=== PATIENT | male | born 1990 | race Caucasian/White ===

== ENCOUNTER 2025-01-15 13:35 | Observation (INO) | payer MEDICARE, MEDICAID, SELFPAY ==
[2025-01-15 08:29] VITALS: BP 186/114
[2025-01-15 09:01] VITALS: BP 158/110
--- NOTE | 2025-01-15 09:16 | ED.GENMED ---
Addendum entered and electronically signed by Eliud Paez MD 01/15/25 15:33:
Slit-lamp exam. No flare in cell. Cornea clear. No dendrites or ulcers. No foreign body. Mild conjunctival injection. No pain with eye motion. No periorbital swelling of note.
Patient also asked me to check the back of his neck. Base of the neck has a crease with erythema. No fluctuance. Suspicious of a fungal infection.
Original Note:
History of Present Illness
<Lg Larkin PA-C - Last Filed: 01/15/25 11:52>
General
Chief Complaint: Breathing Problem
Time Seen by Provider: 01/15/25 08:57
History of Present Illness
History of Present Illness:
Patient is a 34-year-old male with a past medical history of hypertension (reports compliance with antihypertensive medication), prior history of tobacco use, diabetes, anxiety, depression, history of stage I Parkinson's disease (reports family
history), here today for evaluation of persistent chest pain and shortness of breath that has been occurring intermittently over the past 1 to 2 weeks. He also endorses lightheadedness, dizziness, and left eye redness. He has noted discharge and
pus expelling from the left eye as well associated with transient blurry vision. No trauma to the eye. He does not wear contact lenses. He does report this past Saturday he sustained a near syncopal episode after he became lightheaded and struck
his head and neck. He also reports biting his tongue. Patient was seen at [facility] in the emergency department on 01/08/2025. He underwent a full workup including blood work which included troponin, D-dimer, and BNP, CT head and
neck, and CT chest, abdomen, and pelvis. They also performed CT scans of the thoracic and lumbar spine. All of the above evaluation was grossly within normal limits. At 1 point the patient's oxygen levels desaturated to 40% while sleeping which
reportedly came back up to normal. Patient was placed on 2 L nasal cannula. There was concern for possible hypercarbia and ICU ultimately evaluated the patient who felt patient was suitable for discharge with CPAP and outpatient
follow-up/pulmonology evaluation. Patient was discharged but returned the hospital on 01/11/2025 as he was having persistent symptoms. An additional workup was performed including CT orbit, all of which was grossly normal and patient was
recommended to be admitted to the hospital for monitoring but ultimately declined and left. He represents today as he has been having persistent symptoms. He still endorses his left eye symptoms and has been taking the ofloxacin drops as directed.
He was previously prescribed Polytrim but this was not working. He still endorses chest pain and shortness of breath associated with lightheadedness. He has noted mild nasal congestion. He reports a fever last week but this has since resolved.
He has noted lower extremity pain and swelling bilaterally. No cough or sore throat. No other acute complaints.
Past History
<Lg Larkin PA-C - Last Filed: 01/15/25 11:52>
Past History
ED Past Medical History: Psychiatric
ED Past Surgical History: Other (Oral surgery)
Social History
Tobacco: Non-smoker
Alcohol: Occasional
Drug: None
Personal: Single
Living: alone
Employment: Disabled
Family History
Family History: Adopted
Review of Systems
<Lg Larkin PA-C - Last Filed: 01/15/25 11:52>
Review of Systems
All Other Systems: ROS reviewed and negative except as documented in HPI and ROS
Phy Exam
<Lg Larkin PA-C - Last Filed: 01/15/25 11:52>
Physical Exam
Physical Exam:
GENERAL: Alert , in no apparent distress
EYE: pupils equal and reactive, extraocular movements intact, no periorbital swelling/erythema, there is left eye conjunctival injection and purulent material expressing from the medial canthus
NECK: Supple, no rigidity
ENT: o/p clr, mmm.
CARDIAC: Regular rate and rhythm .
LUNGS: Clear breath sounds bilaterally, no acute respiratory distress, no wheezes/rales/rhonchi
ABDOMEN: Soft, without focal tenderness, no r/g, no cvat
NEUROLOGICAL: Alert and oriented, no focal neuro deficits, moving all extremities, normal sensation and motor, cranial nerves II through XII intact
SKIN: Warm and dry, skin intact.
MUSCULOSKELETAL: No edema, well perfused.
PSYCH: Normal and appropriate interaction.
Course
<Lg Larkin PA-C - Last Filed: 01/15/25 11:52>
Orders/Labs/Results
Orders:
Orders
01/15/25 08:23
ECG [Electrocardiogram (*1)] Urgent
Reason for Study: Shortness of Breath
EKG- Treatment ONCE
01/15/25 09:16
EKG- Treatment ONCE
01/15/25 09:20
Complete Blood Count/With Diff Urgent
Comprehensive Metabolic Panel Urgent
Creatine Phosphokinase Urgent
Comment: ADD ON
D-Dimer Urgent
NT-proBNP Urgent
Troponin I Urgent
01/15/25 09:28
CT Chest PE Study Urgent
Comment:
Reason For Exam: shortness of breath
01/15/25 09:30
Add On- LAB Urgent
Comments:: sst in lab
Tests Added?: CPK
Abnormal Lab Results
01/15/25
09:20
MCV 78.4 L fL
(80.0-94.0)
MCH 24.6 L pg
(27.0-31.0)
MCHC 31.4 L g/dL
(33.0-37.0)
RDW 15.9 H %
(11.5-14.5)
Absolute Neuts (auto) 7.2 H 10^3/uL
(1.4-6.5)
Carbon Dioxide 32 H mmol/L
(22-30)
Glucose 131 H mg/dl
(70-99)
01/15/25 09:20
01/15/25 09:20
Vital Signs
Initial and Last Documented VS:
Initial Vital Signs
Temp Pulse Resp BP Pulse Ox
98.2 F 102 18 186/114 93
01/15/25 08:29 01/15/25 08:29 01/15/25 08:29 01/15/25 08:29 01/15/25 08:29
Last Documented Vital Signs
Temp Pulse Resp BP Pulse Ox
98.5 F 77 25 148/94 95
01/15/25 08:29 01/15/25 10:00 01/15/25 10:00 01/15/25 10:27 01/15/25 10:27
<Eliud Paez MD - Last Filed: 01/15/25 09:44>
Orders/Labs/Results
Orders:
Orders
01/15/25 08:23
ECG [Electrocardiogram (*1)] Urgent
Reason for Study: Shortness of Breath
EKG- Treatment ONCE
01/15/25 09:16
EKG- Treatment ONCE
01/15/25 09:20
Complete Blood Count/With Diff Urgent
Comprehensive Metabolic Panel Urgent
Creatine Phosphokinase Urgent
Comment: ADD ON
D-Dimer Urgent
NT-proBNP Urgent
Troponin I Urgent
01/15/25 09:28
CT Chest PE Study Urgent
Comment:
Reason For Exam: shortness of breath
01/15/25 09:30
Add On- LAB Urgent
Comments:: sst in lab
Tests Added?: CPK
Abnormal Lab Results
01/15/25
09:20
MCV 78.4 L fL
(80.0-94.0)
MCH 24.6 L pg
(27.0-31.0)
MCHC 31.4 L g/dL
(33.0-37.0)
RDW 15.9 H %
(11.5-14.5)
Absolute Neuts (auto) 7.2 H 10^3/uL
(1.4-6.5)
Carbon Dioxide 32 H mmol/L
(22-30)
Glucose 131 H mg/dl
(70-99)
01/15/25 09:20
01/15/25 09:20
Vital Signs
Initial and Last Documented VS:
Initial Vital Signs
Temp Pulse Resp BP Pulse Ox
98.2 F 102 18 186/114 93
01/15/25 08:29 01/15/25 08:29 01/15/25 08:29 01/15/25 08:29 01/15/25 08:29
Last Documented Vital Signs
Temp Pulse Resp BP Pulse Ox
98.5 F 77 25 148/94 95
01/15/25 08:29 01/15/25 10:00 01/15/25 10:00 01/15/25 10:27 01/15/25 10:27
<Lg Larkin PA-C - Last Filed: 01/15/25 11:52>
MDM/Problems Addressed
Differential Diagnosis Includes:
Patient is a 34-year-old male with a past medical history of hypertension (reports compliance with antihypertensive medication), prior history of tobacco use, diabetes, anxiety, depression, history of stage I Parkinson's disease (reports family
history), here today for evaluation. Overall, patient appears well. He is hypertensive. He is mildly tachycardic. Vital signs otherwise within normal limits. I was able to review the patient medical record on his cheri and reviewed clinical notes
from the visits on 01/08 and 01/11. We will repeat the workup including CBC, CMP, troponin, and BNP. Will also obtain an EKG and CT pulmonary embolism study. Will place on clinical research monitor and closely monitor and follow.
01/15/2025 09:50: Received notification from nursing staff that patient requested to lie down. During this time oxygen levels were noted to drop as low as 60% with good pleth. This self resolved when the patient woke up. Will continue to monitor.
01/15/2025 11:47: Screening labs reveal mild hyperglycemia to 131. Normal troponin, BNP. CT chest reveals no evidence of PE or thoracic aortic dissection. Clear lungs. There is severe diffuse fatty infiltration of the liver. Patient made aware.
Given persistent chest pain and multiple visits to the emergency department recently we will admit to medicine for further testing and evaluation. Patient in agreement with plan. He does report additionally he has an advance directive which
states no intubation.
<Lg Larkin PA-C - Last Filed: 01/15/25 11:52>
*Pulse Oximetry
SaO2: 95
Oxygen Mode of Delivery: Room air
Patient hypoxic: yes (intermittent, during sleep)
*Critical Care Note
Total Time (30-74mins, 75-104mins- exclusive of procedures): Not Applicable
ED Attending Note
<Lg Larkin PA-C - Last Filed: 01/15/25 11:52>
-
Portions of this chart may have been created with voice recognition software.� Occasional wrong word or��sound alike� substitutions may have occurred due to the inherent limitations of voice recognition software.
<Eliud Paez MD - Last Filed: 01/15/25 09:44>
ED Attending Note
Patient seen and examined by attending physician: Yes
I performed the substantive portion of visit, reviewed & personally made and approve the management plan that is documented in note by myself or CHERI.: Yes
ED Attending Note:
34-year-old male complaining of ongoing intermittent chest discomfort and shortness of breath. Seen twice at [facility]. During that visit he had a CT of his head neck after a fall. Also a plain CT of the chest abdomen and pelvis.
These were unremarkable. Second visit he had his CT of his left orbit for conjunctival discharge. That was unremarkable. They initially were talking of admitting him because he became severely hypoxic but elected to discharge him. He returned
later for a second visit. He now presents with ongoing symptoms.
On exam patient is nontoxic in no distress. Warm and dry. Perfusing well. Lungs are distant but clear. Heart borderline tachycardic and regular no murmur. Elevated BMI soft abdomen. Chronic swelling to both legs appears more adipose tissue
than any pitting edema. He does have some tenderness to the calves bilaterally. Good distal pulses and color.
All his testing at [facility] was reviewed. D-dimers were negative. Cardiac testing was negative. He has mild conjunctival injection of the left eye this appears to be a conjunctivitis which does not course explain his shortness of breath or
intermittent chest pain. The CT of the chest was done plain. Although dimer's were negative the pretest likelihood for PE would be moderately high given his obesity. And with ongoing symptoms feel CT of the chest with IV contrast is warranted.
Either way with a third visit with ongoing chest pain and shortness of breath patient warrants inpatient evaluation
Discharge Plan
Departure
Patient Disposition: Admit
Date of Disposition: 01/15/25
Time of Disposition: 11:46
Admit to: Telemetry
Admit to doctor: Thomas Leigh
Presentation/result/management discussed w/ accepting MD/DO: Hospitalist
Patient with high blood pressure during this ER visit?: Yes
Condition: Serious
Discharge Problem:
Chest pain, Shortness of breath, Hypoxia, sleep related, Acute conjunctivitis, left eye
Referrals:
NONE,* [Family Provider, Internal Medicine]
Interventions
Interventions:
*Risk Screen - Suicide Last Done: 01/15/25 09:27
*General Assessment Last Done: 01/15/25 09:27
*Neglect/Abuse Screening Last Done: 01/15/25 09:27
*ED COVID-19 Vaccine History Last Done: 01/15/25 08:29
ED- Cardiac Assessment Last Done: 01/15/25 09:20
ED- Pulmonary Assessment Last Done: 01/15/25 09:20
Discharge Date and Time
Print Language: SLOVENIAN
[2025-01-15 09:27] LABS: Hematocrit 46.5 % (39.0-52.0); Hemoglobin 14.6 g/dL (13.0-18.0); Mean Corp Hgb Conc. 31.4 g/dL (33.0-37.0); Mean Corpuscular Volume 78.4 fL (80.0-94.0); Nucleated Red Blood Cells % 0 % (-); Platelet Count 233 10^3/uL (130-400); Red Cell Dist. Width 15.9 % (11.5-14.5)
[2025-01-15 09:56] LABS: ALT (SGPT) 29 U/L (0-50); AST (SGOT) 23 U/L (17-59); Albumin 3.9 g/dl (3.5-5.0); Alkaline Phosphatase 85 U/L (38-126); Blood Urea Nitrogen 10 mg/dl (9-20); Calcium 9.2 mg/dl (8.4-10.2); Carbon Dioxide 32 mmol/L (22-30); Chloride 103 mmol/L (98-107); Estimated Creatinine Clearance > 125 ml/min; Glucose 131 mg/dl (70-99); Potassium 4.1 mmol/L (3.5-5.1); Sodium 138 mmol/L (135-145); Total Protein 7.3 g/dl (6.3-8.2); eGFR > 60.00
--- NOTE | 2025-01-15 10:02 | EDRN ---
Pt had asked staff to lower his HOB to supine for comfort. Pt is obese. Pulseox went to 8 with strong pleth. I elevated HOB 4 degrees and pulseox climbed back to 90's. JAMESON Castanon notified.
[2025-01-15 10:06] LABS: D-Dimer 0.33 ug/mlFEU (0.00-0.50)
[2025-01-15 10:07] LABS: Troponin I < 0.012 ng/ml
[2025-01-15 10:27] VITALS: BP 148/94
--- NOTE | 2025-01-15 12:09 | HPS.HSE ---
Family Physician
-
Family Physician: * NONE
Chief Complaint
-
Left Eye Redness
History of Present Illness
Patient is a 34 y/o male past medical history of hypertension, hyperlipemia, diabetes mellitus and morbid obesity who presents with left eye redness as well as complaints of chest pain and shortness of breath. Patient reports his left eye has been
red for about 2-3 weeks. He notes he was initially given an eye drop that had a steroid which seem to help a little bit, but then was changed to ofloxacin drops which has not improved the symptoms. Today upon awaking patient reports the left eye
was swollen shut and had a lot of purulent drainage. He reports pain with movement of the eye and associated blurry vision. He also notes fever as high as 102F earlier this week.
In regard to his chest pain and shortness of breath this has been no going for several weeks. He reports significant dyspnea on exertion which seems to be worsening. He reports left sided chest pressure which is mostly constant but sometimes
worsened and described as a pulsating pain. He states the chest pain does not seem to get worse with activity. He reports dizziness/lightheadedness that is worse with movement particularly standing up. He complains of increased lower extremity
edema.
Medical History
Past Medical History
Past Medical History: Reports Other
Additional Past Medical History:
Diabetes Mellitus, Type II
Essential Hypertension
Hyperlipidemia
Anxiety
Depression
Mood Disorder
PTSD
Past Surgical History: Reports Other
Additional Past Surgical History:
Oral Surgery
Social History
Tobacco: Non-smoker
Alcohol: Occasional
Drug: None
Family History
Family History: Adopted
Allergies / Home Medications
Allergies reflects when Allergies were last updated in [employer].
Home Medications with original date entered in [employer]
Allergy/Medication List:
Allergies
Allergy/AdvReac Type Severity Reaction Status Date / Time
No Known Allergies Allergy Unverified 01/15/25 08:38
Home Medications
acetaminophen 500 mg tablet (Tylenol Extra Strength) 1,000 mg PO Q6HPRN PRN MILD PAIN 01/15/25
albuterol sulfate 90 mcg/actuation aerosol inhaler 2 puff inhalation R Q6HPRN PRN SOB 01/15/25
alprazolam 0.25 mg tablet (Xanax) 0.125 mg PO BIDPRN PRN ANIXETY 01/15/25
bismuth subsalicylate 262 mg chewable tablet (Pepto-Bismol) 2 tab PO QIDPRN PRN GERD 01/15/25
budesonide-formoterol HFA 80 mcg-4.5 mcg/actuation aerosol inhaler (Symbicort) 2 inh inhalation R BID 01/15/25
celecoxib 200 mg capsule (Celebrex) 200 mg PO BID 01/15/25
fluoxetine 20 mg capsule 20 mg PO DAILY@1300 01/15/25
gabapentin 600 mg tablet 600 mg PO TIDPRN PRN MILD PAIN 01/15/25
hydrochlorothiazide 25 mg tablet 25 mg PO DAILY 01/15/25
metformin 500 mg tablet,extended release 24 hr 500 mg PO DAILY 01/15/25
therapeutic multivitamin 1 tab PO DAILY 01/15/25
tirzepatide 2.5 mg/0.5 mL subcutaneous pen injector (Mounjaro) 2.5 mg SC FR 01/15/25
trazodone 50 mg tablet 50 mg PO HS 01/15/25
valsartan 160 mg tablet 160 mg PO DAILY 01/15/25
Review of Systems
-
A 12 point ROS was completed and negative except as noted: Yes
Constitutional: Reports Fever
Respiratory: Reports Cough (Slight non-productive) and Trouble Breathing
Cardiac: Reports Chest Pain
Abdomen/GI: Reports Vomiting
Endocrine: Reports Polyuria
Physical Exam
Vital Signs
Vital Signs
Temp Pulse Resp BP Pulse Ox
98.5 F 77 25 148/94 95
01/15/25 08:29 01/15/25 10:00 01/15/25 10:00 01/15/25 10:27 01/15/25 10:27
Physical Exam
General: Comfortable, Conversant and Morbidly Obese
HEENT: Anicteric, Moist mucous membranes and Other (EOMI though patient reports pain with lateral gaze to the left and blurry vision with gaze to the left; Left conjunctival injection with small amount of purulent material noted)
Respiratory: Clear and Non Labored Respirations
Cardiac: S1/S2 and Regular Rhythm
GI: Soft and Non Tender
Rectal: Deferred by Provider
Musculoskeletal: No Clubbing, No Cyanosis and Other (Slight non-pitting edema bilateral feet)
Skin: Warm and Dry
Neuro: Awake, Alert, Oriented and Other
Psych: Calm
Laboratory Results
-
01/15/25 09:20
01/15/25 09:20
Laboratory Results
Total Bilirubin 0.5 mg/dl (0.2-1.3) 01/15/25 09:20
AST 23 U/L (17-59) 01/15/25 09:20
ALT 29 U/L (0-50) 01/15/25 09:20
Alkaline Phosphatase 85 U/L (38-126) 01/15/25 09:20
Troponin I < 0.012 ng/ml 01/15/25 09:20
Data Reviewed
-
CT Scan: Report Reviewed by me
Lab Data: Labs Reviewed by me
Impression/Plan
-
Chest Pain / Shortness of Breath
-Check Echo
-Check second troponin later this afternoon but doubt cardiac in nature
-Consult Pulmonary
Left Eye Redness, likely conjunctivitis
-Patient had an orbit CT at [facility] last week which was negative
-Transition ofloxacin drop to erythromycin ointment
-ED did reach out ophthalmology - Still awaiting call back
Diabetes Mellitus, Type II
-Check HgbA1c
-Hold metformin
-Monitor sugars and continue coverage insulin
Essential Hypertension
-BP initially uncontrolled likely due to missed medication this morning
-Continue valsartan - Give usual dose now
Anxiety / Depression / Mood Disorder / PTSD
-Continue fluoxetine, and trazodone
Obstructive Sleep Apnea
Suspected Obesity Hypoventilation Syndrome
-Continue CPAP
-Monitor continuous pulse ox, particularly nocturnal pulse ox
Class III Obesity
-Affects all aspects of care
-Encourage weight loss
DVT Proph: SC Heparin
Code Status: Full Code
--- NOTE | 2025-01-15 13:05 | W.PN.UPDATE ---
Addendum entered and electronically signed by Jett Mendes MD 01/15/25 22:07:
01/15/25 TTE:
Technically difficult study with fair image quality Echo contrast used
LVEF 60-65% .
Wall motion analysis limited image quality
No significant valvular disease detected
Addendum entered and electronically signed by Jett Mendes MD 01/15/25 13:35:
Case dw Mds Rn:
Consulted for Clinical MARTHA +/_ [facility] but not forma formally established the Dxs
Original Note:
Update Note
Progress Note Update
This note serves as an addendum to the H&P by tool analyst CROW
Miguelina PINEDA
34M HX HX hypertension, diabetes, anxiety, depression, early Parkinson's disease seen at ER
- cp/sob and lightheadedness.
- left eye discharge/injection is being treated for conjunctivitis. Reports NEG Lt Eye orbit CT per ER CROW
- seen at [facility] 01/08 and 01/11 for similar symptoms and had full workup, all of which grossly NEG but at one point found to be hypoxic during sleep to 40%. Ultimately left after they recommended admission.
- workup is largely unremarkable but patient does desat to 60% while lying flat/sleeping.
- Not yet established MARTHA but mosttlikely he has clinical MARTHA/[facility]
- Given persistent cp and sob and multiple ED visits in the past week plan for admission for cards consultation and
Relevant VS:
PE
Gen: extremely obese
HEENT: Lt eye conjuctivitis
Neck: short and obese neck
Lungs: limied exam due to body habitat
Cor: distant HS
Abdomen: obese abdomen
DELPHI DEVELOPER: AAO3
MS:
Psych: nl mood and affect
Relevant data
Unremarkable CBC
DD 0.33
CO2 32
NEG first TPNI
pro BNP
CTC PE study
1. No evidence of pulmonary embolism or thoracic aortic dissection.
2. Clear lungs.
3. Severe diffuse fatty infiltration of the liver.
EKG
NORMAL SINUS RHYTHM
LOW VOLTAGE QRS
BORDERLINE ECG
WHEN COMPARED WITH ECG OF 01-JAN-2014 22:09,
NO SIGNIFICANT CHANGE WAS FOUND
Confirmed by DYLAN GARCIA MD ([id number]) on 01/15/2025 12:37:43 PM
NO PRIOR DH /Hospitalist admission:
ASSESSMENT & PLAN
HX multiple ED visits in the past
Extreme Obesity with Class III BMI 64
- affects all aspects of
Lt eye conjunctivitis with discharge/injection.
- associated with Lt eye blurry vision
- NEG Lt Eye retroorbital CT at [facility] per ER CROW
- agree with ABx ( Ofloxacin vs E mycin ) eye drops
- Assault Amphibious Vehicle Officer consult by ER CROW
Intermittent CP
- NEG CTA for PE
- NEG first TPNI
- Unremarkable proBNP
- Agree with ECHO but likely limited study due to body habbitat
Desat as low as 40 %
Most likely undiagnosed sleep disorder ( [facility]THA +/_ [facility])
- On [employer]LE[employer] SPECIALIST Symbicort INH
- has home CPAP HS
- OP Pul evaluation
Pre existing conditions:
Bn HTN : on HCTZ and Valsartan
T2DM; on [employer] SPECIALIST Metformin to hold for now in case contrast study for Lt Eye. add ISS low
Anxiety, depression: on Gabapentin, [employer]LE[employer]IST Xanax PRN, Trazodone, and Fluoxetine
Parkinson's ???
DVT Px: SQH q8
Full code
OBS TLM
--- NOTE | 2025-01-15 13:29 | CM ---
CM reviewed chart, patient seen bedside, initial assessment completed. Patient is a 34-year-old male with a past medical history of hypertension (reports compliance with antihypertensive medication), prior history of tobacco use, diabetes, anxiety,
depression, history of stage I Parkinson's disease (reports family history), here today for evaluation of persistent chest pain and shortness of breath that has been occurring intermittently over the past 1 to 2 weeks.
Patient reports he is currently homeless, is working with [facility] and is currently staying in the [facility] in [place], is on the waitlist for housing. Patient reports he has been on the low income list since 2017 for
[facility]. Patient denies VN/SNF, is current in the [facility] program at [facility], just started this week. Patient reports he is hoping to transition to the partial program and feels he could benefit from further therapy. Patient reports he has
worked with the [facility] through [facility] in the past. Patient does not have a PCP, is interested in a list- will provide local [facility] and [facility] info. Patient reports he utilizes [facility]. CM will continue to
follow for all discharge planning needs.
Plan; return to hotel when stable
[2025-01-15] MEDS: DIOVAN 160 MG PO (14:18)
--- NOTE | 2025-01-15 15:10 | CON.PUL ---
Consultation
Consultation Request
Date/Time Consultation Requested: 01/15/25
Date/Time Consultation Performed: 01/15/25
Performing Provider: Shaista
Reason for Consultation: SOB
Medical History
-
History of Present Illness:
Patient is a 34-year-old male with previous history of hypertension, hyperlipidemia, diabetes, morbid obesity, MARTHA not on CPAP with complaints of chest pain and shortness of breath. He is also here with left eye conjunctivitis. He notes that his
shortness of breath and chest pain has not been ongoing for several weeks. He does use a portable oxygen container for shortness of breath with exertion. He has been seen by sleep physicians at [facility] and diagnosed with obstructive sleep
apnea in 2013 he believes. But has since lost his CPAP device following multiple change of residences. He has ongoing excessive daytime sleepiness. He is willing to resume his CPAP if he is able to get a new device. He now lives in [place]
and would like to transition his care to [place].
He does have a history of asthma, had been maintained on Symbicort and albuterol in the past but felt his inhalers were very expensive. He was a former trivial smoker overall less than a year total (1 pack total).
Past Medical History
Past Medical History: Other (see list below)
Social History
Tobacco: Non-smoker
Alcohol: None
Drug: None
Family History
Family History: Reviewed & Not Pertinent
Allergies / Home Medications
Allergies
Allergy/AdvReac Type Severity Reaction Status Date / Time
No Known Allergies Allergy Unverified 01/15/25 08:38
Home Medications
�Medication �Instructions �Recorded �Confirmed �Last Taken �Type
acetaminophen 500 mg tablet 1,000 mg PO Q6HPRN PRN MILD PAIN 01/15/25 01/15/25 Unknown History
(Tylenol Extra Strength)
albuterol sulfate 90 mcg/actuation 2 puff inhalation R Q6HPRN PRN SOB 01/15/25 01/15/25 Unknown History
aerosol inhaler
alprazolam 0.25 mg tablet (Xanax) 0.125 mg PO BIDPRN PRN ANIXETY 01/15/25 01/15/25 Unknown History
bismuth subsalicylate 262 mg 2 tab PO QIDPRN PRN GERD 01/15/25 01/15/25 Unknown History
chewable tablet (Pepto-Bismol)
budesonide-formoterol HFA 80 2 inh inhalation R BID 01/15/25 01/15/25 01/14/25 History
mcg-4.5 mcg/actuation aerosol
inhaler (Symbicort)
celecoxib 200 mg capsule (Celebrex) 200 mg PO BID 01/15/25 01/15/25 01/14/25 History
fluoxetine 20 mg capsule 20 mg PO DAILY@1300 01/15/25 01/15/25 01/14/25 History
gabapentin 600 mg tablet 600 mg PO TIDPRN PRN MILD PAIN 01/15/25 01/15/25 Unknown History
hydrochlorothiazide 25 mg tablet 25 mg PO DAILY 01/15/25 01/15/25 01/14/25 History
metformin 500 mg tablet,extended 500 mg PO DAILY 01/15/25 01/15/25 01/14/25 History
release 24 hr
therapeutic multivitamin 1 tab PO DAILY 01/15/25 01/15/25 01/14/25 History
tirzepatide 2.5 mg/0.5 mL 2.5 mg SC FR 01/15/25 01/15/25 Unknown History
subcutaneous pen injector
(Mounjaro)
trazodone 50 mg tablet 50 mg PO HS 01/15/25 01/15/25 01/14/25 History
valsartan 160 mg tablet 160 mg PO DAILY 01/15/25 01/15/25 01/14/25 History
Review of Systems
-
History Source: Patient
All other systems: Negative unless noted
Vitals / Labs / Diagnostic Testing
Vital Signs
Temp Pulse Resp BP Pulse Ox
98.5 F 72 32 155/75 92
01/15/25 08:29 01/15/25 14:18 01/15/25 12:00 01/15/25 14:18 01/15/25 12:00
Lab Data
01/15/25 09:20
01/15/25 09:20
Diagnostic Testing:
Physical Exam
-
HEENT: Normocephalic, Anicteric, Moist Mucous Membranes and Other (L eye redness)
Cardiovascular: S1/S2 and Regular Rhythm
Respiratory: Clear (overall diminished) and Non-Labored Respirations
GI: Soft, Non Distended and Non Tender
Neurology: Awake, Alert, Oriented and No Motor Deficits
Skin: Warm, Dry and Good Color
General: Comfortable and Other (NAD)
Assessment
-
Patient is a 34-year-old male with previous history of hypertension, hyperlipidemia, diabetes, morbid obesity, MARTHA not on CPAP with complaints of chest pain and shortness of breath. He is also here with left eye conjunctivitis. He notes that his
shortness of breath and chest pain has not been ongoing for several weeks. He does use a portable oxygen container for shortness of breath with exertion. He has been seen by sleep physicians at [facility] and diagnosed with obstructive sleep
apnea in 2013 he believes. But has since lost his CPAP device following multiple change of residences. He has ongoing excessive daytime sleepiness. He is willing to resume his CPAP if he is able to get a new device. He now lives in [place]
and would like to transition his care to [place].
He does have a history of asthma, had been maintained on Symbicort and albuterol in the past but felt his inhalers were very expensive. He was a former trivial smoker overall less than a year total (1 pack total).
SOB/chest pain
Left eye conjunctivitis
Chronic hypoxic respiratory failure, use of POC as needed at home
Conditions present [employer]
MARTHA not on CPAP
Diabetes Mellitus, Type II
Essential Hypertension
Hyperlipidemia
Anxiety
Depression
Mood Disorder
PTSD
Morbid obesity
Oral Surgery
Plan
No oxygen was needed on admission, currently saturating >90% on RA
He has a POC to use at home
Home O2 evaluation if needed
Prior history of lung disease is noted including asthma
He has been on symbicort in past-has difficulty affording his medications
We can switch his inhaler use to Advair generic to see if this is cheaper, we have discussed alternatives for inhalers as an outpatient if insurance does not cover
No prior PFTs available for review, we will try to attempt to locate records from [facility] as an outpatient
Patient has a history of MARTHA, no longer using CPAP
Will need set up as an outpatient again, can resume CPAP at 5 for the time being while inpatient
He is agreeable to outpatient follow-up
CXR/CT obtained indicating no acute process
He is ruled out for PE
He has history of hypertension but no other cardiomyopathy
proBNP on admission negative
No prior echo for review
Cardiac workup while in observation
Weight loss measures recommended
Obesity likely contributing to respiratory symptoms
We can discuss weight loss measures as an outpatient as well including initiation of Zepbound
Will need outpatient pulmonary evaluation in our office for PFTs and 6MWT
Reviewed with patient, will arrange outpatient follow-up
We will follow
Diagnostic Data
Chest X-Ray: 2013-No acute process.
CT Scan: CHEST 01/15/25- 1. No evidence of pulmonary embolism or thoracic aortic dissection.
2. Clear lungs.
3. Severe diffuse fatty infiltration of the liver.
Echo:
PFT's:
Reports and relevant images were personally reviewed.
Total time spent on this consultation __55__ minutes which includes review of history, physical exam, medications, laboratory data, personal review of imaging, extensive review of outpatient records, discussion with care team and respiratory therapy.
[2025-01-15 15:45] LABS: Troponin I < 0.012 ng/ml
[2025-01-15 19:34] VITALS: BP 157/106; BMI 63.4
[2025-01-15] MEDS: SYMBICORT 80/4.5 MCG INHALER 2 PUFF INH (20:07)
[2025-01-15] MEDS: ADVAIR HFA 230/21 MCG INHALER 2 PUFF INH (20:08)
[2025-01-15 20:59] LABS: Glucose - Point of Care 89 mg/dl (70-99)
--- NOTE | 2025-01-15 22:24 | PTCARENOTE ---
received pt in my care at 1930. oriented to room, call rodriguez and POC. pt upset he is not on REG diet, states he will sign out AMA if not on reg diet. Reviewed diet with pt. pt refusing erythromycin oint. for lt eye, pt requests only drops.
States it causes pain and makes his eyelid flip inside out. Inst pt all medications will cause discomfort in the eye bc he has infection. Pt still refuses. HAM SAWYER notified, hospital does not carry drops per HAM SAWYER. Pt informed and wants to sign out AMA d/t
no drops for the eye. HAM SAWYER aware
--- NOTE | 2025-01-15 22:55 | RESPNOTE ---
Saw pt around 2234. Pt refused CPAP due to the pt wanting to sign out AMA. Pt was educated if they should change their mind to let their RN know and we will come back and put them on the CPAP. RN is aware of situation.
--- NOTE | 2025-01-16 00:03 | PTCARENOTE ---
pt signed out AMA. ELI Rosenthal at bedside with pt and reviewing AMA paperwork. pt verb understanding, left with all belongings. pt ambulated out of hospital
--- NOTE | 2025-01-16 00:50 | W.PN.UPDATE ---
Update Note
Progress Note Update
Patient requesting to leave. Pt AAOX3, pt education given regarding leaving AMA and risks associated. AMA form signed by me (provider) and patient.
== END 2025-01-16 04:10 | disposition left against medical advice (07) ==
LOC: 2 NORTH 13:35
PROVIDERS: Physician Assistant; Physician Assistant Medical; ADMITTING PHYSICIAN Internal Medicine; CONSULT PHYSICIAN Internal Medicine; EMERGENCY PHYSICIAN Emergency Medicine
DX: H10.32 Unspecified acute conjunctivitis, left eye (principal); R07.89 Other chest pain; R50.9 Fever, unspecified; J96.11 Chronic respiratory failure with hypoxia; E78.5 Hyperlipidemia, unspecified; I10 Essential (primary) hypertension; E11.9 Type 2 diabetes mellitus without complications; E66.813 Obesity, class 3; Z68.44 Body mass index [BMI] 60.0-69.9, adult; R42 Dizziness and giddiness; R60.0 Localized edema; F41.9 Anxiety disorder, unspecified; F32.A Depression, unspecified; F43.10 Post-traumatic stress disorder, unspecified; G47.33 Obstructive sleep apnea (adult) (pediatric); G20.A1 Parkinson's disease without dyskinesia, without mention of fluctuations; J45.909 Unspecified asthma, uncomplicated; Z79.84 Long term (current) use of oral hypoglycemic drugs; Z53.29 Procedure and treatment not carried out because of patient's decision for other reasons
CPT/HCPCS: 71275; 80053; 82550; 82962; 83880; 84484; 85025; 85379; 93005; 93306; 94640; 99285; G0378; Q9950; Q9967

== ENCOUNTER 2025-03-02 15:17 | Emergency (ER) | payer MEDICARE, MEDICAID, SELFPAY ==
[2025-03-02 15:26] VITALS: BP 172/109
[2025-03-02 16:00] LABS: Hematocrit 44.9 % (39.0-52.0); Hemoglobin 13.8 g/dL (13.0-18.0); Mean Corp Hgb Conc. 30.7 g/dL (33.0-37.0); Mean Corpuscular Volume 78.5 fL (80.0-94.0); Nucleated Red Blood Cells % 0 % (-); Platelet Count 253 10^3/uL (130-400); Red Cell Dist. Width 16.0 % (11.5-14.5)
[2025-03-02 16:11] LABS: ALT (SGPT) 34 U/L (0-50); AST (SGOT) 29 U/L (17-59); Albumin 4.3 g/dl (3.5-5.0); Alkaline Phosphatase 81 U/L (38-126); Blood Urea Nitrogen 15 mg/dl (9-20); Calcium 9.2 mg/dl (8.4-10.2); Carbon Dioxide 33 mmol/L (22-30); Chloride 101 mmol/L (98-107); Glucose 100 mg/dl (70-99); Potassium 4.2 mmol/L (3.5-5.1); Sodium 139 mmol/L (135-145); Total Protein 7.7 g/dl (6.3-8.2); eGFR > 60.00
[2025-03-02 16:29] LABS: Troponin I < 0.012 ng/ml
[2025-03-02 17:54] VITALS: BP 170/122
[2025-03-02 18:00] VITALS: BP 171/126; BMI 63.3
[2025-03-02 18:54] LABS: Troponin I < 0.012 ng/ml
[2025-03-02 19:00] VITALS: BP 176/126
[2025-03-02 19:18] LABS: D-Dimer 0.39 ug/mlFEU (0.00-0.50)
[2025-03-02 21:41] VITALS: BP 147/95
--- NOTE | 2025-03-02 21:57 | ED.GENMED ---
History of Present Illness
General
Chief Complaint: Breathing Problem
Source: patient
Exam Limitations: none
Time Seen by Provider: 03/02/25 17:59
Nursing documentation reviewed up to this point in time: agreed with
History of Present Illness
History of Present Illness:
Patient to ED with report of HERNANDEZ. He has had this symptoms before but feels it has been worse for the past few days. Denies fever/chills. Brought self to ED for eval.
Past History
Past History
ED Past Medical History: COPD, NIDDM and Psychiatric (anxiety)
ED Past Surgical History: Other (Oral surgery)
Social History
Tobacco: Non-smoker
Alcohol: Occasional
Drug: None
Personal: Single
Living: alone
Employment: Disabled
Family History
Family History: Adopted
Review of Systems
Review of Systems
Allergies reviewed?: Yes
All Other Systems: ROS reviewed and negative except as documented in HPI and ROS
Constitutional: Reports no symptoms
EENT: Reports no symptoms
Respiratory: Reports trouble breathing
Cardiac: Reports no symptoms
ABD/GI: Reports no symptoms
: Reports no symptoms
Musculoskeletal: Reports no symptoms
Skin: Reports no symptoms
Neurological: Reports no symptoms
Psychiatric: Reports no symptoms
Phy Exam
General Physical Exam
General Presentation: well appearing and no apparent distress
General age: appears stated age
General Skin: warm and dry
General Habitus: obese
General Mental: alert
General Hydration: appears well hydrated
Cardiovascular Exam
Cardiovascular Exam: regular rate/rhythm and no edema (+1 edema BLE)
Pulmonary Exam
Pulmonary Exam: lungs clear, no respiratory distress (Pulse ox 98% 2L NC) and chest non tender
Oxygen Status: oxygen 2 liters via NC
Musculoskeletal Exam
Musculoskeletal Exam: full ROM and neuro vasc intact
Skin Exam
Skin Exam: normal color, warm/dry and no rash
Psychiatric Exam
Psychiatric Exam: normal mood/affect
Course
Orders/Labs/Results
Orders:
Orders
03/02/25 15:17
Electrocardiogram (*1) Urgent
Reason for Study: Shortness of Breath
EKG- Treatment ONCE
03/02/25 15:50
Complete Blood Count/With Diff Urgent
Comprehensive Metabolic Panel Urgent
NT-proBNP Urgent
Troponin I Urgent
03/02/25 18:24
D-Dimer Urgent
Troponin I Urgent
03/02/25 19:39
CR Chest - 2 Views Urgent
Comment:
Reason For Exam: SOB
Abnormal Lab Results
03/02/25
15:50
WBC 12.7 H 10^3/uL
(4.8-10.8)
MCV 78.5 L fL
(80.0-94.0)
MCH 24.1 L pg
(27.0-31.0)
MCHC 30.7 L g/dL
(33.0-37.0)
RDW 16.0 H %
(11.5-14.5)
Abs Immat Gran (auto) 0.1 H 10^3/uL
(0-0.05)
Absolute Neuts (auto) 8.8 H 10^3/uL
(1.4-6.5)
Absolute Monos (auto) 0.9 H 10^3/uL
(0.1-0.6)
Carbon Dioxide 33 H mmol/L
(22-30)
Glucose 100 H mg/dl
(70-99)
03/02/25 15:50
03/02/25 15:50
Vital Signs
Initial and Last Documented VS:
Initial Vital Signs
Temp Pulse Resp BP Pulse Ox
99.0 F 103 20 172/109 94
03/02/25 15:26 03/02/25 15:26 03/02/25 15:26 03/02/25 15:26 03/02/25 15:26
Last Documented Vital Signs
Temp Pulse Resp BP Pulse Ox
99.0 F 104 17 176/126 91
03/02/25 15:26 03/02/25 21:07 03/02/25 21:07 03/02/25 19:00 03/02/25 20:45
*Pulse Oximetry
SaO2: 91
Oxygen Mode of Delivery: Room air
Patient hypoxic: no
*Critical Care Note
Total Time (30-74mins, 75-104mins- exclusive of procedures): Not Applicable
Update Note
Update Note:
Patient to ED with complaint of HERNANDEZ. He has a history of this, wears O2 2L NC intermittently at home. MOrbidly obese (230KG, BMI 63.4) LCTA, CXR NAD, labs stable. Ddimer, troponin both neg. EKG nSR. Discussed results with him. NO new findings
tonight. Will discharge home, close follow up with PCP. Given instructions on s/s to return to ED and he is agreeable to plan. BP readings, reviewed. Diastolic reading >110. Cuff changed by me. BP now 145/95
ED Attending Note
-
Portions of this chart may have been created with voice recognition software.� Occasional wrong word or��sound alike� substitutions may have occurred due to the inherent limitations of voice recognition software.
Discharge Plan
Departure
Patient Disposition: Home (Routine Discharge)
Date of Disposition: 03/02/25
Time of Disposition: 21:46
Patient with high blood pressure during this ER visit?: No
Condition: Good
Covid-19: Not Applicable
Discharge Problem:
Dyspnea
Instructions: Shortness of breath in adults - ED (DC)
Prescriptions:
No Action
trazodone 50 mg tablet
50 mg PO HS
celecoxib [Celebrex] 200 mg Capsule
200 mg PO BID
gabapentin 600 mg Tablet
600 mg PO TIDPRN PRN (Reason: MILD PAIN)
Theragen Tablet
1 tab PO DAILY
acetaminophen [Tylenol Extra Strength] 500 mg Tablet
1,000 mg PO Q6HPRN PRN (Reason: MILD PAIN)
alprazolam [Xanax] 0.25 mg Tablet
0.125 mg PO BIDPRN PRN (Reason: ANIXETY)
bismuth subsalicylate [Pepto-Bismol] 262 mg Tablet,Chewable
2 tab PO QIDPRN PRN (Reason: GERD)
hydrochlorothiazide 25 mg Tablet
25 mg PO DAILY
albuterol sulfate [ProAir HFA] 90 mcg/actuation Hfa Aerosol Inhaler
2 puff INHALATION R Q6HPRN PRN (Reason: SOB)
fluoxetine 20 mg Capsule
20 mg PO DAILY@1300
metformin 500 mg tablet extended release 24 hr
500 mg PO DAILY
valsartan 160 mg Tablet
160 mg PO DAILY
budesonide-formoterol [Symbicort] 80-4.5 mcg/actuation Hfa Aerosol Inhaler
2 inh INHALATION R BID
Mounjaro 2.5 mg/0.5 mL Pen Injector
2.5 mg SC FR
Rx Instructions:
for 4 weeks
Referrals:
NONE,* [Family Provider, Internal Medicine]
Activity Restrictions/Additional Instructions:
Follow up with your family doctor.
Interventions
Interventions:
*Risk Screen - Suicide Last Done: 03/02/25 15:31
*General Assessment Last Done: 03/02/25 18:11
*Neglect/Abuse Screening Last Done: 03/02/25 15:31
*ED- Fall Risk Assessment Last Done: 03/02/25 18:11
*ED COVID-19 Vaccine History Last Done: 03/02/25 18:11
ED- Cardiac Assessment Last Done: 03/02/25 18:30
ED- Pulmonary Assessment Last Done: 03/02/25 18:30
Discharge Date and Time
Print Language: CYPRIOT
[2025-03-02 22:00] VITALS: BP 156/89
== END 2025-03-02 22:26 | disposition home or self-care (01) ==
LOC: EMR 15:17
PROVIDERS: Nurse Practitioner; EMERGENCY PHYSICIAN Emergency Medicine
DX: R06.00 Dyspnea, unspecified (principal); J44.9 Chronic obstructive pulmonary disease, unspecified; E11.9 Type 2 diabetes mellitus without complications; E66.01 Morbid (severe) obesity due to excess calories; Z68.44 Body mass index [BMI] 60.0-69.9, adult; Z99.81 Dependence on supplemental oxygen
CPT/HCPCS: 99285; 71046; 80053; 83880; 84484; 85025; 85379; 93005

== ENCOUNTER 2025-04-08 09:59 | Observation (INO) | payer OTHER, SELFPAY ==
[2025-04-08] VITALS (16 sets, daily range): BP systolic 142–179; BP diastolic 70–127; BMI 64.7
--- NOTE | 2025-04-08 04:14 | ED.GENMED ---
History of Present Illness
<Kemal Medrano Jr., PA-C - Last Filed: 04/09/25 03:08>
General
Chief Complaint: Breathing Problem
Source: patient
Exam Limitations: none
Time Seen by Provider: 04/08/25 03:46
Nursing documentation reviewed up to this point in time: agreed with
History of Present Illness
History of Present Illness:
34-year-old male past medical history of CHF hypertension asthma, BMI of 64, presenting to the emergency department today with concerns of shortness of breath and upper respiratory symptoms over the past 24 hours or so. Does have postnasal drip has
had a cough believes he has been wheezing. Has had some nausea no vomiting or diarrhea.
Past History
<Kemal Medrano Jr., PA-C - Last Filed: 04/09/25 03:08>
Past History
ED Past Medical History: COPD, NIDDM and Psychiatric (anxiety)
ED Past Surgical History: Other (Oral surgery)
Social History
Tobacco: Non-smoker
Alcohol: Occasional
Drug: None
Personal: Single
Living: alone
Employment: Disabled
Family History
Family History: Adopted
Review of Systems
<Kemal Medrano Jr., PA-C - Last Filed: 04/09/25 03:08>
Review of Systems
Allergies reviewed?: Yes
All Other Systems: ROS reviewed and negative except as documented in HPI and ROS
Phy Exam
<YOVANI Mac Jr. Last Filed: 04/09/25 03:08>
Physical Exam
Physical Exam:
GENERAL: Alert , in no apparent distress
EYE: pupils equal and reactive
NECK: Supple, no significant adenopathy.
ENT: Postnasal drip mild irritation to the posterior pharynx without significant exudate grossly patent airway, o/p clr, mmm.
CARDIAC: Regular rate and rhythm .
LUNGS: Expiratory wheeze diffusely
ABDOMEN: Soft, without focal tenderness, no r/g, no cvat
NEUROLOGICAL: Alert and oriented, no focal neuro deficits
SKIN: Warm and dry, skin intact.
MUSCULOSKELETAL: No edema, well perfused.
PSYCH: Normal and appropriate interaction.
Course
<Kemal Medrano Jr., PA-C - Last Filed: 04/09/25 03:08>
Orders/Labs/Results
Orders:
Orders
04/08/25 02:07
EKG [Electrocardiogram (*1)] Urgent
Reason for Study: Shortness of Breath
EKG- Treatment ONCE
04/08/25 04:14
Bedside Glucose- Treatment ONCE
Dexamethasone [Decadron] 10 mg PO NOW STA
Ipratropium/Albuterol Sulfate [Duoneb] 3 ml INH R NOW ONE
Chest [CR Chest - 2 Views ] Urgent
Comment:
Reason For Exam: cough sob
04/08/25 06:09
CBC/With Diff [Complete Blood Count/With Diff] Urgent
CMP [Comprehensive Metabolic Panel] Urgent
COVID-19 Antigen Urgent
Source: Nasal Swab
D-Dimer Urgent
Pro-BNP [NT-proBNP] Urgent
Troponin I Urgent
Influenza A+B Rapid Molecular Urgent
LESLEY Source: Nasal Swab
Specimen Description:
04/08/25 07:47
Furosemide [Lasix] 40 mg PO NOW STA
Valsartan [Diovan] 320 mg PO NOW STA
04/08/25 08:39
Admit/Transfer Patient As Directed
Co-Sign Provider:
Level of Care: Observation services
Assign to:: Medical/Surgical
Physician / Group: Juan Carlos Arthur
Diagnosis: Acute asthma exacerbation
Reason for Hospitalization: Acute asthma exacerbation
Expected length of stay greater than two midnights?: Yes
ELOS- Estimated Length of Stay in days: 2
I certify the patient meets the requirements for IP care: Yes
04/08/25 08:44
Code Status As Directed
Resuscitation Status: Full Code
04/08/25 08:51
Ondansetron Injectable [Zofran] 4 mg IV Q6HPRN PRN
04/08/25 Lunch
2200 calorie (18 carb) Diabetic
At Your Request: Full Participation
04/08/25 11:08
Albuterol [ProAIR HFA INHALER] 2 puff INH R Q6HPRN PRN SOB
04/08/25 11:10
CT Chest PE Study Urgent
Comment:
Reason For Exam: elevated D-dimer
04/08/25 11:20
Acetaminophen [Tylenol] 1,000 mg PO Q6HPRN PRN MILD PAIN
Dextrose 50%-Water [Dextrose 50% Syringe] 12.5 grams IV [id number] PRN
Glucagon [GlucaGen] 1 mg IM PRN PRN
Ondansetron Injectable [Zofran] 4 mg IV Q8HPRN PRN
04/08/25 11:20
Bedside Glucose Monitoring As Directed
Frequency: AC&HS
Additional Instructions:: Change to q6h if pt on TPN, tube feeding or not eating
Ot Eval And Treat Routine
Pt Eval And Treat Routine
Activity Level: Ambulate
DX Deep Vein Thrombosis Video Routine
04/08/25 11:30
Insulin Aspart Corrective Mod [Novolog Flexpen-Moderate Resistance] See Protocol SC AC
04/08/25 12:00
Ipratropium/Albuterol Sulfate [Duoneb] 3 ml INH R QID
04/08/25 13:00
Fluoxetine HCl [Prozac] 20 mg PO DAILY@1300
04/08/25 13:07
Alprazolam [Xanax] 0.125 mg PO BIDPRN PRN ANIXETY
04/08/25 13:08
Gabapentin [Neurontin] 600 mg PO TIDPRN PRN
04/08/25 18:00
Atorvastatin [Lipitor] 40 mg PO QPM
Enoxaparin Sodium [Lovenox] 40 mg SC QPM
Lurasidone HCl [Latuda] 20 mg PO QPM
04/08/25 20:00
Furosemide [Lasix] 40 mg PO BID
04/08/25 21:57
Arterial Blood Gas Urgent
%Oxygen/Room Air: room air
04/09/25 06:00
Complete Blood Count/With Diff IN AM
Comprehensive Metabolic Panel IN AM
04/09/25 08:00
NIFEdipine EXTENDED RELEASE [Procardia Xl (Extended Release)] 60 mg PO DAILY
Pantoprazole [Protonix] 40 mg PO DAILY
Valsartan [Diovan] 320 mg PO DAILY
Abnormal Lab Results
04/08/25 04/08/25
05:45 06:09
WBC 11.1 H 10^3/uL
(4.8-10.8)
MCV 76.8 L fL
(80.0-94.0)
MCH 24.5 L pg
(27.0-31.0)
MCHC 31.9 L g/dL
(33.0-37.0)
RDW 15.9 H %
(11.5-14.5)
Absolute Neuts (auto) 8.0 H 10^3/uL
(1.4-6.5)
Lymphocytes % 19.9 L %
(20.5-51.1)
D-Dimer 0.52 H ug/mlFEU
(0.00-0.50)
Glucose 115 H mg/dl
(70-99)
POC Glucose 110 H mg/dl
(70-99)
04/08/25 06:09
04/08/25 06:09
Vital Signs
Initial and Last Documented VS:
Initial Vital Signs
Temp Pulse Resp BP Pulse Ox
97.9 F 102 20 179/119 97
04/08/25 02:17 04/08/25 02:17 04/08/25 02:17 04/08/25 02:17 04/08/25 02:17
Last Documented Vital Signs
Temp Pulse Resp BP Pulse Ox
97.8 F 83 18 138/64 94
04/08/25 22:00 04/09/25 01:10 04/08/25 22:00 04/09/25 01:08 04/09/25 01:13
<July Mcneil, DO - Last Filed: 04/08/25 06:23>
Orders/Labs/Results
Orders:
Orders
04/08/25 02:07
EKG [Electrocardiogram (*1)] Urgent
Reason for Study: Shortness of Breath
EKG- Treatment ONCE
04/08/25 04:14
Bedside Glucose- Treatment ONCE
Dexamethasone [Decadron] 10 mg PO NOW STA
Ipratropium/Albuterol Sulfate [Duoneb] 3 ml INH R NOW ONE
Chest [CR Chest - 2 Views ] Urgent
Comment:
Reason For Exam: cough sob
04/08/25 06:09
CBC/With Diff [Complete Blood Count/With Diff] Urgent
CMP [Comprehensive Metabolic Panel] Urgent
COVID-19 Antigen Urgent
Source: Nasal Swab
D-Dimer Urgent
Pro-BNP [NT-proBNP] Urgent
Troponin I Urgent
Influenza A+B Rapid Molecular Urgent
LESLEY Source: Nasal Swab
Specimen Description:
04/08/25 07:47
Furosemide [Lasix] 40 mg PO NOW STA
Valsartan [Diovan] 320 mg PO NOW STA
04/08/25 08:39
Admit/Transfer Patient As Directed
Co-Sign Provider:
Level of Care: Observation services
Assign to:: Medical/Surgical
Physician / Group: Juan Carlos Arthur
Diagnosis: Acute asthma exacerbation
Reason for Hospitalization: Acute asthma exacerbation
Expected length of stay greater than two midnights?: Yes
ELOS- Estimated Length of Stay in days: 2
I certify the patient meets the requirements for IP care: Yes
04/08/25 08:44
Code Status As Directed
Resuscitation Status: Full Code
04/08/25 08:51
Ondansetron Injectable [Zofran] 4 mg IV Q6HPRN PRN
04/08/25 Lunch
2200 calorie (18 carb) Diabetic
At Your Request: Full Participation
04/08/25 11:08
Albuterol [ProAIR HFA INHALER] 2 puff INH R Q6HPRN PRN SOB
04/08/25 11:10
CT Chest PE Study Urgent
Comment:
Reason For Exam: elevated D-dimer
04/08/25 11:20
Acetaminophen [Tylenol] 1,000 mg PO Q6HPRN PRN MILD PAIN
Dextrose 50%-Water [Dextrose 50% Syringe] 12.5 grams IV [id number] PRN
Glucagon [GlucaGen] 1 mg IM PRN PRN
Ondansetron Injectable [Zofran] 4 mg IV Q8HPRN PRN
04/08/25 11:20
Bedside Glucose Monitoring As Directed
Frequency: AC&HS
Additional Instructions:: Change to q6h if pt on TPN, tube feeding or not eating
Ot Eval And Treat Routine
Pt Eval And Treat Routine
Activity Level: Ambulate
DX Deep Vein Thrombosis Video Routine
04/08/25 11:30
Insulin Aspart Corrective Mod [Novolog Flexpen-Moderate Resistance] See Protocol SC AC
04/08/25 12:00
Ipratropium/Albuterol Sulfate [Duoneb] 3 ml INH R QID
04/08/25 13:00
Fluoxetine HCl [Prozac] 20 mg PO DAILY@1300
04/08/25 13:07
Alprazolam [Xanax] 0.125 mg PO BIDPRN PRN ANIXETY
04/08/25 13:08
Gabapentin [Neurontin] 600 mg PO TIDPRN PRN
04/08/25 18:00
Atorvastatin [Lipitor] 40 mg PO QPM
Enoxaparin Sodium [Lovenox] 40 mg SC QPM
Lurasidone HCl [Latuda] 20 mg PO QPM
04/08/25 20:00
Furosemide [Lasix] 40 mg PO BID
04/08/25 21:57
Arterial Blood Gas Urgent
%Oxygen/Room Air: room air
04/09/25 06:00
Complete Blood Count/With Diff IN AM
Comprehensive Metabolic Panel IN AM
04/09/25 08:00
NIFEdipine EXTENDED RELEASE [Procardia Xl (Extended Release)] 60 mg PO DAILY
Pantoprazole [Protonix] 40 mg PO DAILY
Valsartan [Diovan] 320 mg PO DAILY
Abnormal Lab Results
04/08/25 04/08/25
05:45 06:09
WBC 11.1 H 10^3/uL
(4.8-10.8)
MCV 76.8 L fL
(80.0-94.0)
MCH 24.5 L pg
(27.0-31.0)
MCHC 31.9 L g/dL
(33.0-37.0)
RDW 15.9 H %
(11.5-14.5)
Absolute Neuts (auto) 8.0 H 10^3/uL
(1.4-6.5)
Lymphocytes % 19.9 L %
(20.5-51.1)
D-Dimer 0.52 H ug/mlFEU
(0.00-0.50)
Glucose 115 H mg/dl
(70-99)
POC Glucose 110 H mg/dl
(70-99)
04/08/25 06:09
04/08/25 06:09
Vital Signs
Initial and Last Documented VS:
Initial Vital Signs
Temp Pulse Resp BP Pulse Ox
97.9 F 102 20 179/119 97
04/08/25 02:17 04/08/25 02:17 04/08/25 02:17 04/08/25 02:17 04/08/25 02:17
Last Documented Vital Signs
Temp Pulse Resp BP Pulse Ox
97.8 F 83 18 138/64 94
04/08/25 22:00 04/09/25 01:10 04/08/25 22:00 04/09/25 01:08 04/09/25 01:13
<Dharmesh St PA-C - Last Filed: 04/08/25 07:52>
Orders/Labs/Results
Orders:
Orders
04/08/25 02:07
EKG [Electrocardiogram (*1)] Urgent
Reason for Study: Shortness of Breath
EKG- Treatment ONCE
04/08/25 04:14
Bedside Glucose- Treatment ONCE
Dexamethasone [Decadron] 10 mg PO NOW STA
Ipratropium/Albuterol Sulfate [Duoneb] 3 ml INH R NOW ONE
Chest [CR Chest - 2 Views ] Urgent
Comment:
Reason For Exam: cough sob
04/08/25 06:09
CBC/With Diff [Complete Blood Count/With Diff] Urgent
CMP [Comprehensive Metabolic Panel] Urgent
COVID-19 Antigen Urgent
Source: Nasal Swab
D-Dimer Urgent
Pro-BNP [NT-proBNP] Urgent
Troponin I Urgent
Influenza A+B Rapid Molecular Urgent
LESLEY Source: Nasal Swab
Specimen Description:
04/08/25 07:47
Furosemide [Lasix] 40 mg PO NOW STA
Valsartan [Diovan] 320 mg PO NOW STA
04/08/25 08:39
Admit/Transfer Patient As Directed
Co-Sign Provider:
Level of Care: Observation services
Assign to:: Medical/Surgical
Physician / Group: Juan Carlos Arthur
Diagnosis: Acute asthma exacerbation
Reason for Hospitalization: Acute asthma exacerbation
Expected length of stay greater than two midnights?: Yes
ELOS- Estimated Length of Stay in days: 2
I certify the patient meets the requirements for IP care: Yes
04/08/25 08:44
Code Status As Directed
Resuscitation Status: Full Code
04/08/25 08:51
Ondansetron Injectable [Zofran] 4 mg IV Q6HPRN PRN
04/08/25 Lunch
2200 calorie (18 carb) Diabetic
At Your Request: Full Participation
04/08/25 11:08
Albuterol [ProAIR HFA INHALER] 2 puff INH R Q6HPRN PRN SOB
04/08/25 11:10
CT Chest PE Study Urgent
Comment:
Reason For Exam: elevated D-dimer
04/08/25 11:20
Acetaminophen [Tylenol] 1,000 mg PO Q6HPRN PRN MILD PAIN
Dextrose 50%-Water [Dextrose 50% Syringe] 12.5 grams IV [id number] PRN
Glucagon [GlucaGen] 1 mg IM PRN PRN
Ondansetron Injectable [Zofran] 4 mg IV Q8HPRN PRN
04/08/25 11:20
Bedside Glucose Monitoring As Directed
Frequency: AC&HS
Additional Instructions:: Change to q6h if pt on TPN, tube feeding or not eating
Ot Eval And Treat Routine
Pt Eval And Treat Routine
Activity Level: Ambulate
DX Deep Vein Thrombosis Video Routine
04/08/25 11:30
Insulin Aspart Corrective Mod [Novolog Flexpen-Moderate Resistance] See Protocol SC AC
04/08/25 12:00
Ipratropium/Albuterol Sulfate [Duoneb] 3 ml INH R QID
04/08/25 13:00
Fluoxetine HCl [Prozac] 20 mg PO DAILY@1300
04/08/25 13:07
Alprazolam [Xanax] 0.125 mg PO BIDPRN PRN ANIXETY
04/08/25 13:08
Gabapentin [Neurontin] 600 mg PO TIDPRN PRN
04/08/25 18:00
Atorvastatin [Lipitor] 40 mg PO QPM
Enoxaparin Sodium [Lovenox] 40 mg SC QPM
Lurasidone HCl [Latuda] 20 mg PO QPM
04/08/25 20:00
Furosemide [Lasix] 40 mg PO BID
04/08/25 21:57
Arterial Blood Gas Urgent
%Oxygen/Room Air: room air
04/09/25 06:00
Complete Blood Count/With Diff IN AM
Comprehensive Metabolic Panel IN AM
04/09/25 08:00
NIFEdipine EXTENDED RELEASE [Procardia Xl (Extended Release)] 60 mg PO DAILY
Pantoprazole [Protonix] 40 mg PO DAILY
Valsartan [Diovan] 320 mg PO DAILY
Abnormal Lab Results
04/08/25 04/08/25
05:45 06:09
WBC 11.1 H 10^3/uL
(4.8-10.8)
MCV 76.8 L fL
(80.0-94.0)
MCH 24.5 L pg
(27.0-31.0)
MCHC 31.9 L g/dL
(33.0-37.0)
RDW 15.9 H %
(11.5-14.5)
Absolute Neuts (auto) 8.0 H 10^3/uL
(1.4-6.5)
Lymphocytes % 19.9 L %
(20.5-51.1)
D-Dimer 0.52 H ug/mlFEU
(0.00-0.50)
Glucose 115 H mg/dl
(70-99)
POC Glucose 110 H mg/dl
(70-99)
04/08/25 06:09
04/08/25 06:09
Vital Signs
Initial and Last Documented VS:
Initial Vital Signs
Temp Pulse Resp BP Pulse Ox
97.9 F 102 20 179/119 97
04/08/25 02:17 04/08/25 02:17 04/08/25 02:17 04/08/25 02:17 04/08/25 02:17
Last Documented Vital Signs
Temp Pulse Resp BP Pulse Ox
97.8 F 83 18 138/64 94
04/08/25 22:00 04/09/25 01:10 04/08/25 22:00 04/09/25 01:08 04/09/25 01:13
<Kemal Medrano Jr., JAMESON-C - Last Filed: 04/09/25 03:08>
MDM/Problems Addressed
MDM/Problems Addressed:
34-year-old male presenting to the emergency department today with concerns of upper respiratory symptoms throughout the day worsening this evening associated shortness of breath and wheezing. Here does have expiratory wheeze started on steroid and
DuoNeb. Symptoms seem consistent with potential viral syndrome with secondary asthma exacerbation. Patient reassessed with improving symptoms. Able to ambulate without pulse ox dropping, however the patient claims he felt very lightheaded and
shortness of breath. Concerning this and his medical history plan for additional extended workup including BNP additional labs and D-dimer. He also did admit to recent hospital stay at [facility] he was discharged yesterday he was there for a
few days with concerns of some symptoms into his left arm where they had some degree of concern for potential stroke.
<Kemal Medrano Jr., PA-C - Last Filed: 04/09/25 03:08>
*Pulse Oximetry
SaO2: 89
Oxygen Mode of Delivery: Room air
Patient hypoxic: no (96)
*Critical Care Note
Total Time (30-74mins, 75-104mins- exclusive of procedures): Not Applicable
<Dharmesh St PA-C - Last Filed: 04/08/25 07:52>
Update Note
Update Note:
Assumed care of patient pending studies such as COVID flu BNP D-dimer. COVID and flu test were negative. D-dimer 0.52 not clinically elevated. Will admit patient to hospital for asthma exacerbation and hypoxemic respiratory failure
ED Attending Note
<Kemal Medrano Jr., PA-C - Last Filed: 04/09/25 03:08>
-
Portions of this chart may have been created with voice recognition software.� Occasional wrong word or��sound alike� substitutions may have occurred due to the inherent limitations of voice recognition software.
<July Mcneil DO - Last Filed: 04/08/25 06:23>
ED Attending Note
Patient seen and examined by attending physician: Yes
I performed a history and physical exam of patient and discussed management with resident, I reviewed resident's note and agree with documented findings and plan of care.: Yes
ED Attending Note:
34-year-old gentleman with history of morbid obesity, asthma, hypertension, CHF, [id number] diabetes, anxiety/depression, PTSD. Recently hospitalized for 2 days at [facility] for stroke workup after he presented with left upper arm pain
associated with numbness and weakness. He states CAT scan x 2 was negative for stroke. Unable to perform an MRI due to obesity. He was discharged yesterday and notes onset of URI symptoms, nasal congestion, cough that began yesterday morning.
Low-grade fever noted tonight. Shortness of breath progressive throughout the day.
34-year-old morbidly obese gentleman appears his stated age.
Room air pulse ox 92% at rest.
Moderate nasal, stuffy voice is noted. Rare dry cough is noted. Currently afebrile.
Heart is regular rate and rhythm.
Lungs with decreased breath sounds at bases otherwise clear to auscultation.
Patient noted mild to moderate improvement in cough and shortness of breath after nebulizer treatment but noted to have significant dyspnea with ambulatory/walk test with pulse ox ranging 88 to 90% on room air.
Chest x-ray shows no evidence of infiltrate. Mild increased interstitial markings concerning for potential CHF versus underpenetration related to soft tissue attenuation.
Due to acute hypoxic respiratory failure, significant dyspnea on exertion patient will require acute hospitalization for further evaluation.
Due to report of low-grade fever today. Will check COVID and influenza.
Will check labs including BNP, troponin and due to recent hospitalization albeit 2 days must also consider PE. Will check D-dimer.
Discharge Plan
Departure
Patient Disposition: Admit
Date of Disposition: 04/08/25
Time of Disposition: 07:52
Presentation/result/management discussed w/ accepting MD/DO: Hospitalist
Patient with high blood pressure during this ER visit?: No
Condition: Good
Covid-19: Not Applicable
Discharge Problem:
Asthma exacerbation
Interventions
Interventions:
*Risk Screen - Suicide Last Done: 04/08/25 02:08
*General Assessment Last Done: 04/08/25 02:08
*Neglect/Abuse Screening Last Done: 04/08/25 02:08
*ED- Fall Risk Assessment Last Done: 04/08/25 03:33
*ED COVID-19 Vaccine History Last Done: 04/08/25 02:08
*ED Influenza Vaccine History Last Done: 04/08/25 02:08
ED- Cardiac Assessment Last Done: 04/08/25 07:24
ED- Pulmonary Assessment Last Done: 04/08/25 07:24
[2025-04-08] MEDS: DECADRON 10 MG PO (04:53)
[2025-04-08] MEDS: DUONEB 3 ML INH ×4 (04:53→20:33)
[2025-04-08 05:48] LABS: Glucose - Point of Care 110 mg/dl (70-99)
[2025-04-08 06:36] LABS: Hematocrit 42.7 % (39.0-52.0); Hemoglobin 13.6 g/dL (13.0-18.0); Mean Corp Hgb Conc. 31.9 g/dL (33.0-37.0); Mean Corpuscular Volume 76.8 fL (80.0-94.0); Nucleated Red Blood Cells % 0 % (-); Platelet Count 222 10^3/uL (130-400); Red Cell Dist. Width 15.9 % (11.5-14.5)
[2025-04-08 06:45] LABS: D-Dimer 0.52 ug/mlFEU (0.00-0.50)
[2025-04-08 06:53] LABS: ALT (SGPT) 25 U/L (0-50); AST (SGOT) 20 U/L (17-59); Albumin 4.0 g/dl (3.5-5.0); Alkaline Phosphatase 96 U/L (38-126); Blood Urea Nitrogen 10 mg/dl (9-20); Calcium 9.1 mg/dl (8.4-10.2); Carbon Dioxide 29 mmol/L (22-30); Chloride 105 mmol/L (98-107); Estimated Creatinine Clearance > 125 ml/min; Glucose 115 mg/dl (70-99); Potassium 4.1 mmol/L (3.5-5.1); Sodium 139 mmol/L (135-145); Total Protein 7.2 g/dl (6.3-8.2); eGFR > 60.00
[2025-04-08 07:05] LABS: Troponin I < 0.012 ng/ml
[2025-04-08 07:09] LABS: COVID-19 Antigen Negative (Negative)
[2025-04-08] MEDS: DIOVAN 320 MG PO (08:19)
[2025-04-08] MEDS: LASIX 40 MG PO ×2 (08:20→19:46)
--- NOTE | 2025-04-08 08:52 | HPS.HSE ---
Addendum entered and electronically signed by Juan Carlos Arthur MD 04/08/25 12:51:
Read, reviewed, and agree. See same day progress note for additional details. Time spent reviewing records in EMR, med rec, consults, notes, d/w consultants, nursing, family, and CM
Addendum entered and electronically signed by Juan Carlos Arthur MD 04/08/25 12:51:
34 obese male with history of acute bronchitis usually flares during seasonal changes presenting with upper respiratory tract symptoms along with shortness of breath. Was told by ED provider noted to have wheezing although did not hear wheezing on
exam. Admission for hypoxia has O2 sat decreased to 88% while sleeping for likely nocturnal hypoxemia in the setting of noncompliance sleep apnea as he has been recommended to wear a CPAP but does not. Elevated dimer likely related to obesity but
because presenting symptoms of shortness of breath and a reading of 88% while sleeping will go ahead and order CT PE study to rule out pulmonary embolism. Will admit as observation status. He has been notified about this admission.
Original Note:
Family Physician
-
Family Physician: Dent Ezequiel dinh
Chief Complaint
-
URI symptoms
History of Present Illness
34-year-old male with past medical history significant for diabetes mellitus type 2 [id number], morbid obesity-BMI 64.7, essential hypertension, hyperlipidemia, anxiety, depression, mood disorder, PTSD presents to the emergency room for
evaluation of sore throat congestion cough and shortness of breath with some accompanying nausea and chills. His symptoms started about 3 days ago, with congestion and sore throat and progressively worsened to shortness of breath. On 04/07/2025 he
woke up in the a.m. feeling number and has left hand with some associated tingling and thought he was having stroke for which he was evaluated in the [facility] ER, CT head negative. Patient was discharged from the emergency room with a
diagnosis of URI. Today he reports having some wheezing, severe congestion and postnasal drip.
When inquired further, patient never performed a spirometry he was presumed to have a diagnosis of asthma and is being treated with inhalers, Symbicort at a lower dose of 90-4.5, in the ER patient had few episodes of desaturation with sats dropping
down to 88% and an elevated blood pressure. Patient did not take his blood pressure medications in the a.m. But did not require any oxygen. His D-dimers are elevated at 0.52, his proBNP was at 492.
Upon review of systems patient admits to have nausea and reflux but no diarrhea or constipation, dysuria frequency or sputum production with his cough. He denies chest pain palpitations orthopnea PND and syncope or near syncopal episodes.
Medical History
Past Medical History
Past Medical History: Reports Other (NIDDM, hypertension, hyperlipidemia, anxiety/depression, mood disorder, PTSD.)
Past Surgical History: Reports Other (None)
Social History
Tobacco: Non-smoker
Alcohol: Occasional
Drug: None
Personal: Single
Living: Alone
Employment: Disabled
Family History
Family History: Not pertinent
Allergies / Home Medications
Allergies reflects when Allergies were last updated in [employer].
Home Medications with original date entered in [employer]
Allergy/Medication List:
Allergies
Allergy/AdvReac Type Severity Reaction Status Date / Time
No Known Allergies Allergy Verified 03/02/25 15:31
Home Medications
albuterol sulfate 90 mcg/actuation aerosol inhaler 2 puff inhalation R Q6HPRN PRN SOB 01/15/25
alprazolam 0.25 mg tablet (Xanax) 0.125 mg PO BIDPRN PRN ANIXETY 01/15/25
bismuth subsalicylate 262 mg chewable tablet (Pepto-Bismol) 2 tab PO QIDPRN PRN GERD 01/15/25
budesonide-formoterol HFA 80 mcg-4.5 mcg/actuation aerosol inhaler (Symbicort) 2 inh inhalation R BID 01/15/25
celecoxib 200 mg capsule (Celebrex) 200 mg PO BID 01/15/25
fluoxetine 20 mg capsule 20 mg PO DAILY@1300 01/15/25
gabapentin 600 mg tablet 600 mg PO TIDPRN PRN MILD PAIN 01/15/25
hydrochlorothiazide 25 mg tablet 25 mg PO DAILY 01/15/25
metformin 500 mg tablet,extended release 24 hr 500 mg PO DAILY 01/15/25
therapeutic multivitamin 1 tab PO DAILY 01/15/25
tirzepatide 2.5 mg/0.5 mL subcutaneous pen injector (Mounjaro) 2.5 mg SC FR 01/15/25
trazodone 50 mg tablet 50 mg PO HS 01/15/25
valsartan 160 mg tablet 320 mg PO DAILY 01/15/25
albuterol sulfate 90 mcg/actuation breath activated powder inhaler 2 inh inhalation Q6H PRN shortness of breath or wheezing #1 ea 04/08/25
ciprofloxacin 0.3 %-dexamethasone 0.1 % ear drops,suspension 4 drp otic (ear) BID left ear 04/08/25
furosemide 40 mg tablet 40 mg PO BID 04/08/25
lurasidone 20 mg tablet (Latuda) 20 mg PO DAILY 04/08/25
nifedipine 60 mg tablet,extended release 24 hr 60 mg PO DAILY 04/08/25
prednisone 50 mg tablet 50 mg PO DAILY 4 days #4 tabs 04/08/25
sodium chloride 0.65 % nasal spray aerosol 1 spray intranasal Q6HPRN PRN dryness 04/08/25
Review of Systems
-
Constitutional: Reports Chills
EENT: Reports No Symptoms
Respiratory: Reports Cough and Trouble Breathing
Abdomen/GI: Reports Nausea and Other (Reflux)
: Reports No Symptoms
Musculoskeletal: Reports No Symptoms
Neurological: Reports No Symptoms
Hematologic/Lymphatic: Reports No Symptoms
Psych: Reports No Symptoms
Physical Exam
Vital Signs
Vital Signs
Temp Pulse Resp BP Pulse Ox
97.5 F 92 21 172/113 92
04/08/25 07:21 04/08/25 08:19 04/08/25 07:18 04/08/25 08:19 04/08/25 07:18
Physical Exam
General: No Apparent Distress and Comfortable
Respiratory: Clear; No Wheezes, Rales, Rhonchi or Crackles
Cardiac: S1/S2 and Regular Rhythm; No Murmur, Rub or Gallop
GI: Soft, Normal Bowel Sounds and Other (Could not appreciate organomegaly or tenderness or distention due to pannus.)
Musculoskeletal: No Clubbing, No Cyanosis and No Edema
Neuro: AO x 3
Psych: Calm
Laboratory Results
-
04/08/25 06:09
04/08/25 06:09
Laboratory Results
Total Bilirubin 0.3 mg/dl (0.2-1.3) 04/08/25 06:09
AST 20 U/L (17-59) 04/08/25 06:09
ALT 25 U/L (0-50) 04/08/25 06:09
Alkaline Phosphatase 96 U/L (38-126) 04/08/25 06:09
Troponin I < 0.012 ng/ml 04/08/25 06:09
Data Reviewed
-
Diagnostic Radiology: Image Personally Visualized and interpreted, Report Reviewed by me, Discussed with Physician and Discussed with Nurse
Lab Data: Labs Reviewed by me, Discussed with Physician and Discussed with Patient
Impression/Plan
-
IMPRESSION: 34-year-old male with morbid obesity, BMI of 64.7 and past medical history significant for type 2 diabetes mellitus, essential hypertension, hyperlipidemia, anxiety, depression, mood disorder, PTSD presents to the ER for evaluation of
shortness of breath, wheezing and URI.
PLAN:
# Acute asthma exacerbation-
Flu and COVID-negative
Admit to MedSurg, likely secondary to URI
Upon further history patient admits to have never done spirometry.
Asthma is an assumed diagnosis for him, obtain PFTs to check for asthma.
Saturations dropping down to 88% in sleep, not requiring oxygen currently.
Suspect some hypoxia is secondary to obesity hypoventilation/MARTHA. Trazodone held.
Will obtain ABG to assess for obesity hypoventilation syndrome.
Start the patient on DuoNebs, Symbicort higher dose.
Albuterol inhaler as needed.
# Type 2 diabetes mellitus-
Insulin sliding scale
Accu-Cheks
# Essential hypertension-
Continue valsartan and nifedipine and Lasix at home doses.
Continue spironolactone 50 mg.
# Hyperlipidemia-
Continue atorvastatin.
# Anxiety/depression-
Continue Xanax, lurasidone and fluoxetine.
# Morbid obesity-
Prime contributor for overall disease burden in the patient.
# Chronic pain-
Continue gabapentin,
acetaminophen as needed.
# DVT prophylaxis-
Lovenox
# CODE STATUS-
Full code.
[2025-04-08] MEDS: ZOFRAN 4 MG IV ×2 (09:54→19:46)
--- NOTE | 2025-04-08 11:47 | RESPNOTE ---
TT sent to Dr Arthur regarding ABG clotting. stated ' He wants ABG.' Notified patient doctor wants ABG, patient again refusing ABG draw. and RN aware
[2025-04-08 13:33] LABS: Glucose - Point of Care 133 mg/dl (70-99)
[2025-04-08] MEDS: PROZAC 20 MG PO (14:48)
--- NOTE | 2025-04-08 14:58 | EDCM ---
CM reviewed chart and met with pt bedside in ED. Pt lives alone in first floor apartment, no NORBERT.
Independent in ADLs, personal care and ambulation. Uses cane. He also has CPAP he does not use, has home O2, uses 2L [place] PRN, he does not remember the name of the supplier but said they went out of business.
His mother in September, does not have any other family.
Comes to TOP program at [facility] 930 to 12 MWF, [facility] provides transportation, planning to transition to Partial Program.
Also utilizes [facility] as needed.
PAULINO reviewed and signed, copy left with pt.
Hx [facility], recent history [facility] after hospitalzation at [facility].
PCP: [facility]
Pharmacy: [facility] in [place]
CM will continue to follow for all discharge planning needs.
[2025-04-08 18:48] LABS: Glucose - Point of Care 264 mg/dl (70-99)
[2025-04-08] MEDS: LIPITOR 40 MG PO (18:52)
[2025-04-08] MEDS: LATUDA 20 MG PO (18:52)
[2025-04-08] MEDS: XANAX 0.125 MG PO (18:55)
[2025-04-08] MEDS: ROBITUSSIN 200 MG PO (21:27)
[2025-04-09 01:08] VITALS: BP 138/64
[2025-04-09 06:29] LABS: Hematocrit 42.0 % (39.0-52.0); Hemoglobin 13.2 g/dL (13.0-18.0); Mean Corp Hgb Conc. 31.4 g/dL (33.0-37.0); Mean Corpuscular Volume 77.6 fL (80.0-94.0); Nucleated Red Blood Cells % 0 % (-); Platelet Count 244 10^3/uL (130-400); Red Cell Dist. Width 16.6 % (11.5-14.5)
--- NOTE | 2025-04-09 06:55 | W.PN.UPDATE ---
Update Note
Progress Note Update
Patient insisted on leaving AM so he could attend outpatient therapy group session at [facility] because he missed too many due to his in patient rehab stay recently. No resp distress. speaks in full sentences. Encouraged him to return if he needs to.
He said he would consider it.
[2025-04-09 07:04] LABS: ALT (SGPT) 25 U/L (0-50); AST (SGOT) 19 U/L (17-59); Albumin 4.2 g/dl (3.5-5.0); Alkaline Phosphatase 86 U/L (38-126); Blood Urea Nitrogen 13 mg/dl (9-20); Calcium 9.2 mg/dl (8.4-10.2); Carbon Dioxide 26 mmol/L (22-30); Chloride 105 mmol/L (98-107); Estimated Creatinine Clearance > 125 ml/min; Glucose 119 mg/dl (70-99); Potassium 4.7 mmol/L (3.5-5.1); Sodium 139 mmol/L (135-145); Total Protein 7.6 g/dl (6.3-8.2); eGFR > 60.00
[2025-04-09] MEDS: DUONEB INH ×2 (07:33→11:01)
--- NOTE | 2025-04-09 19:38 | W.DCSUMMARY ---
Discharge Summary
Discharge Data
Date of Admission: 04/08/25
Date of Discharge: 04/09/25
-
Pending Results: No
Additional Pending Results:
Principle Discharge Diagnosis:
Acute asthma exacerbation
Hospital Course
34 male MARTHA noncompliant with CPAP, asthma, morbidly obese, NIDDM, HTN, hyperlipidemia, anxiety/ depression, Parkinson disease ,PTSD. Presents to the ER for cough and shortness of breath. Was admitted yesterday 04/08/2025. ER Work up consisted of
labs with microcytosis, wbc 11.1, trop negative, bnp 492, d-dimer 0.52, ctpe no evidence of pe, clear lunges severe diffuse fatty infiltration of the liver. However left AMA this morning and returned again following outpatient therapy. Shortness of
breath and lower extremity edema ongoing. Has a cough that is productive which he states started earlier today and had no cough yesterday.
Today 04/09/2025, hemodynamically stable, 94-95% room air, sitting on the edge of his bed without evidence of respiratory distress. Lab with a wbc of 15. Pulmonary evaluated in the ED with diagnoses of chronic shortness of breath and lower
extremity edema, MARTHA noncompliant with CPAP. Will need outpatient PFTs follow-up with outpatient pulmonary and 6-minute walk test. He needs to follow-up with outpatient sleep study and titration to assess properly.
Prior to presented to [facility] he was seen at [facility] in [place] for left upper extremity weakness and upper respiratory tract infections.
He states that he has no place to live and that is the actual reason he would like to stay.
Important Radiological Findings:
Chest Xray 04/08/2025
IMPRESSION:
1. Clear lungs.
2. No significant change compared to prior study.
CTA of the chest with intravenous contrast 04/08/2025
IMPRESSION:
1. No evidence of central pulmonary embolism. Subsegmental pulmonary arteries are suboptimally evaluated due to contrast bolus timing and patient body habitus.
2. Clear lungs.
3. Severe diffuse fatty infiltration of the liver.
Discharge Plan
-
Patient Disposition: Home (Routine Discharge)
Discharge Diagnosis/Procedures: Asthma Exacerbation
Activity Restrictions/Additional Instructions:
Please follow-up outpatient visit with pulmonary for PFT and 6-minute walk test.
Please follow-up with outpatient sleep study
Additional Discharge Medication Instructions: Patient signed Against Medical Advice
Prescriptions:
Continued
trazodone 50 mg tablet
50 mg PO HS
gabapentin 600 mg Tablet
600 mg PO TID
therapeutic multivitamin Tablet
1 tab PO DAILY
alprazolam [Xanax] 0.25 mg Tablet
0.25 mg PO BIDPRN PRN (Reason: ANIXETY)
albuterol sulfate 90 mcg/actuation Hfa Aerosol Inhaler
2 puff INHALATION R Q6HPRN PRN (Reason: SOB)
fluoxetine 20 mg Capsule
20 mg PO DAILY@1300
metformin 500 mg tablet extended release 24 hr
500 mg PO DAILY
budesonide-formoterol [Symbicort] 80-4.5 mcg/actuation Hfa Aerosol Inhaler
2 inh INHALATION R BID
furosemide 40 mg Tablet
40 mg PO BID
nifedipine 60 mg Tablet Extended Release 24hr
60 mg PO DAILY
sodium chloride 0.65 % Aerosol,[place]
1 spray INTRANASAL Q6HPRN PRN (Reason: dryness)
ciprofloxacin-dexamethasone 0.3-0.1 % Drops,Suspension
4 drp OTIC (EAR) BID
lurasidone [Latuda] 20 mg Tablet
20 mg PO DAILY
valsartan 320 mg Tablet
320 mg PO DAILY
atorvastatin [Lipitor] 40 mg Tablet
40 mg PO QPM
neomycin-polymyxin B-dexameth [Maxitrol] 3.5mg/mL-10,000 unit/mL-0.1 % Drops,Suspension
1 drp BOTH EYES Q12H
Discharge Orders:
Discharge Patient (As Directed); Ordered 04/09/25
Ordered By: Sussy Kuo
Discharge Date and Time
Discharge Date/Time: 04/09/25 07:00
Print Language: NEPALI
== END 2025-04-09 07:00 | disposition home or self-care (01) ==
LOC: ED 09:59
PROVIDERS: Physician Assistant; Specialist Research Data Abstracter/Coder; Student in an Organized Health Care Education/Training Program; ADMITTING PHYSICIAN Hospitalist; EMERGENCY PHYSICIAN Emergency Medicine
DX: J45.901 Unspecified asthma with (acute) exacerbation (principal); J96.01 Acute respiratory failure with hypoxia; I11.0 Hypertensive heart disease with heart failure; I50.9 Heart failure, unspecified; Z68.44 Body mass index [BMI] 60.0-69.9, adult; E66.01 Morbid (severe) obesity due to excess calories; R11.0 Nausea; F41.9 Anxiety disorder, unspecified; E11.9 Type 2 diabetes mellitus without complications; R42 Dizziness and giddiness; R20.0 Anesthesia of skin; M79.622 Pain in left upper arm; R53.1 Weakness; K76.0 Fatty (change of) liver, not elsewhere classified; R94.31 Abnormal electrocardiogram [ECG] [EKG]; K21.9 Gastro-esophageal reflux disease without esophagitis; G89.29 Other chronic pain; F43.10 Post-traumatic stress disorder, unspecified; F32.A Depression, unspecified; E78.5 Hyperlipidemia, unspecified; Z79.52 Long term (current) use of systemic steroids; Z79.899 Other long term (current) drug therapy; Z79.51 Long term (current) use of inhaled steroids; Z11.52 Encounter for screening for COVID-19; Z60.2 Problems related to living alone
CPT/HCPCS: 36600; 71046; 71275; 80053; 82962; 83880; 84484; 85025; 85379; 87502; 87811; 93005; 94640; 99285; Q9967

== ENCOUNTER 2025-04-09 09:36 | Emergency (ER) | payer OTHER, SELFPAY ==
[2025-04-09 09:45] VITALS: BP 130/87
--- NOTE | 2025-04-09 10:30 | ED.GENMED ---
History of Present Illness
<JERRY Vásquez - Last Filed: 04/10/25 07:37>
General
Chief Complaint: Breathing Problem
Source: patient
Exam Limitations: none
Time Seen by Provider: 04/09/25 10:28
Nursing documentation reviewed up to this point in time: agreed with
History of Present Illness
History of Present Illness:
Patient is a 34-year-old male with past medical history of CHF hypertension hyperlipidemia CHF Parkinson's morbid obesity PTSD, obstructive sleep apnea diabetes presents back to the ED for SOB. Pt was admitted yesterday for viral syndrome/acute
asthma exacerbation however signed out against medical advice this morning at 655 in order to go to therapy at [facility].
During his workup. He had a negative CT PE study and had negative flu and COVID studies. Patient continues to feel short of breath and also complains of bilateral lower extremity swelling.
He denies any fever or chills.
He was previously instructed to use CPAP but has not used it. He denies any chest pain recent fever chills.
Past History
<JERRY Vásquez - Last Filed: 04/10/25 07:37>
Past History
ED Past Medical History: COPD, NIDDM and Psychiatric (anxiety)
ED Past Surgical History: Other (Oral surgery)
Social History
Tobacco: Non-smoker
Alcohol: Occasional
Drug: None
Personal: Single
Living: alone
Employment: Disabled
Family History
Family History: Adopted
Phy Exam
<JERRY Vásquez - Last Filed: 04/10/25 07:37>
General Physical Exam
General Presentation: no apparent distress
General age: appears older than age
General Skin: warm and dry
General Habitus: obese
General Mental: alert
General Hydration: appears well hydrated
Cardiovascular Exam
Cardiovascular Exam: regular rate/rhythm
Pulmonary Exam
Pulmonary Exam: lungs clear
Neurological Exam
Neurological Exam: alert and oriented x3
Musculoskeletal Exam
Musculoskeletal Exam: other ( + swelling to b/l feet + strong pulses )
Skin Exam
Skin Exam: normal color and warm/dry
Psychiatric Exam
Psychiatric Exam: normal mood/affect
Course
<JERRY Vásquez - Last Filed: 04/10/25 07:37>
Orders/Labs/Results
Orders:
Orders
04/09/25 11:14
IV Insert/Care/Rem.- Treatment PRN
04/09/25 11:30
Albuterol Nebs [Ventolin Nebules] 2.5 mg INH R NOW STA
04/09/25 11:49
Furosemide [Lasix] 40 mg IV NOW STA
04/09/25 12:15
PULMONARY CONSULT Urgent
Consulting Provider: Madison Noonan
Was physician already notified: Yes
Reason for consult: SOB
04/09/25 13:12
Obtain Records As Directed
Dates of Information to be Released: ALL
Type of Information Requested: Entire Record
Obtain Records from: [facility]
04/09/25 13:14
Case Management Consult ONCE
Case Management Consult: Discharge Planning
Vital Signs
Initial and Last Documented VS:
Initial Vital Signs
Temp Pulse Resp BP Pulse Ox
97.4 F 89 20 130/87 96
04/09/25 09:45 04/09/25 09:45 04/09/25 09:45 04/09/25 09:45 04/09/25 09:45
Last Documented Vital Signs
Temp Pulse Resp BP Pulse Ox
97.4 F 106 22 34/22 91
04/09/25 10:46 04/09/25 13:45 04/09/25 13:45 04/09/25 13:02 04/09/25 13:45
Rn Ortho consulted with Physician
Rn Ortho consulted with physician?: Yes
Name of Physician Consulted: Sin
<Taye Vogt DO - Last Filed: 04/09/25 14:16>
Orders/Labs/Results
Orders:
Orders
04/09/25 11:14
IV Insert/Care/Rem.- Treatment PRN
04/09/25 11:30
Albuterol Nebs [Ventolin Nebules] 2.5 mg INH R NOW STA
04/09/25 11:49
Furosemide [Lasix] 40 mg IV NOW STA
04/09/25 12:15
PULMONARY CONSULT Urgent
Consulting Provider: Madison Noonan
Was physician already notified: Yes
Reason for consult: SOB
04/09/25 13:12
Obtain Records As Directed
Dates of Information to be Released: ALL
Type of Information Requested: Entire Record
Obtain Records from: [facility]
04/09/25 13:14
Case Management Consult ONCE
Case Management Consult: Discharge Planning
Vital Signs
Initial and Last Documented VS:
Initial Vital Signs
Temp Pulse Resp BP Pulse Ox
97.4 F 89 20 130/87 96
04/09/25 09:45 04/09/25 09:45 04/09/25 09:45 04/09/25 09:45 04/09/25 09:45
Last Documented Vital Signs
Temp Pulse Resp BP Pulse Ox
97.4 F 106 22 34/22 91
04/09/25 10:46 04/09/25 13:45 04/09/25 13:45 04/09/25 13:02 04/09/25 13:45
<JERRY Vásquez - Last Filed: 04/10/25 07:37>
MDM/Problems Addressed
Differential Diagnosis Includes:
Not limited to chronic obstructive sleep apnea, hypoxia noncompliance chronic lower extremity swelling
MDM/Problems Addressed:
As documented patient is a 34-year old male with past medical history as documented above presented back to the ER for continued shortness of breath lower extremity swelling. He was admitted yesterday but signed out against medical advice this
morning to go to therapy. He reports he is presently living in his car and continues to c/o of short of breath and extremity swelling. As documented during prior notes patient is not compliant with his CPAP. He admits to being noncompliant with
his CPAP previously and now as he is living in his car. Patient is morbidly obese on exam and when in the supine position his pulse ox does decrease likely from his obstructive sleep apnea however when sitting up or standing patient is not hypoxic.
No obvious Rales. Nontachycardic afebrile
Case discussed with hospitalist who did evaluate patient and suggest pulmonary eval. Pulmonary did see and evaluate patient. Pulmonary does feel that patient may be discharged and will need outpatient follow up. He does have a longstanding
history of noncompliance with his current living situation being homeless has not been able to use his CPAP machine.
Case management was consulted and was asked to see patient. Case management will look into patient's insurance to discuss further outpatient support ( pt also requesting termite control service representative care)however with patient's homelessness condition pt will likely
need fpc. Regarding patient's swelling likely chronic swelling no evidence of CHF on recent imaging BNP is negative. This edema seems chronic as discussed with patient. Ultrasounds were ordered but patient refuses. CAse was discussed with "Violeta"Sin who evaluated patient.
After much discussion with admitting hospitalist /pulmonary and case management it was decided that pt is to be discharged.
Chronic conditions affecting care:
History of noncompliance obstructive sleep apnea chronic lower extremity swelling
<JERRY Vásquez - Last Filed: 04/10/25 07:37>
*Pulse Oximetry
SaO2: 96
Oxygen Mode of Delivery: Room air
Patient hypoxic: no (pt non hypoxic with standing pulse ox desaturates when laying down )
*Critical Care Note
Total Time (30-74mins, 75-104mins- exclusive of procedures): Not Applicable
Data Reviewed
Review of Other/Old Records Reveals: Labs, Progress Notes and Other (notes from previous admission)
Source: patient
<JERRY Vásquez - Last Filed: 04/10/25 07:37>
Patient Management
Discussion with other providers: Overlock Operator (Pulmonary )
<Taye Vogt DO - Last Filed: 04/09/25 14:16>
Update Note
Update Note:
1:14 PM from a pulmonary standpoint, pulmonary believes that patient could potentially go home if venous ultrasounds are negative for DVT. However, patient is homeless and living in his car. He does not have adequate electricity to use his CPAP
machine. Unless case management can find him fpc with electricity, patient will have to be admitted
2 PM I had a long discussion with the admitting hospitalist. The admitting hospitalist indicating that the patient does not meet admission criteria. Admitting team did evaluate pt and discussed case with hospital administration. Patient feels
that he needs to be admitted due to his leg swelling. I did explain to him that leg swelling by itself is not an admittable criteria. I am more concerned about his respiratory status. Patient does have a history of noncompliance with his CPAP.
He acknowledges that he needs to be more compliant. His current living situation is his car. Because of this, he does not have access to electricity. Case management is working on getting him a ride to a fpc where he has access to electricity
and working on long-term placement in the background.
Case management provided pt with information to call to help with termite control service representative care
ED Attending Note
<JERRY Vásquez - Last Filed: 04/10/25 07:37>
-
Portions of this chart may have been created with voice recognition software.� Occasional wrong word or��sound alike� substitutions may have occurred due to the inherent limitations of voice recognition software.
<Taye Vogt DO - Last Filed: 04/09/25 14:16>
ED Attending Note
Patient seen and examined by attending physician: Yes
I performed the substantive portion of visit, reviewed & personally made and approve the management plan that is documented in note by myself or CROW.: Yes
ED Attending Note:
I have seen and evaluated the patient with a [id number] encounter. I have spoken to the advance practicer provider and involved in the medical history, the physical exam, medical decision making.
Evaluation and management service: agree unless noted differently below.
Results interpretation: agree unless noted differently below.
Focused HPI: 34-year-old male presenting back to the emergency department with shortness of breath. Patient has a very elevated BMI and by default appears to have restrictive lung disease. Patient had a negative workup in the emergency department
recently. Patient found to become intermittently hypoxic
Physical exam: Bilateral leg edema. Lungs otherwise clear. Elevated BMI
Medical Decision Making: Given his intermittent hypoxia, will discuss case with pulmonology to discuss disposition
Discharge Plan
Departure
Patient Disposition: Home (Routine Discharge)
Date of Disposition: 04/09/25
Time of Disposition: 13:25
Patient with high blood pressure during this ER visit?: Yes
Condition: Fair
Covid-19: Not Applicable
Discharge Problem:
Shortness of breath
Instructions: Shortness of Breath (Dyspnea) (DC)
Prescriptions:
No Action
trazodone 50 mg tablet
50 mg PO HS
gabapentin 600 mg Tablet
600 mg PO TID
therapeutic multivitamin Tablet
1 tab PO DAILY
alprazolam [Xanax] 0.25 mg Tablet
0.25 mg PO BIDPRN PRN (Reason: ANIXETY)
albuterol sulfate 90 mcg/actuation Hfa Aerosol Inhaler
2 puff INHALATION R Q6HPRN PRN (Reason: SOB)
fluoxetine 20 mg Capsule
20 mg PO DAILY@1300
metformin 500 mg tablet extended release 24 hr
500 mg PO DAILY
budesonide-formoterol [Symbicort] 80-4.5 mcg/actuation Hfa Aerosol Inhaler
2 inh INHALATION R BID
furosemide 40 mg Tablet
40 mg PO BID
nifedipine 60 mg Tablet Extended Release 24hr
60 mg PO DAILY
sodium chloride 0.65 % Aerosol,[place]
1 spray INTRANASAL Q6HPRN PRN (Reason: dryness)
ciprofloxacin-dexamethasone 0.3-0.1 % Drops,Suspension
4 drp OTIC (EAR) BID
lurasidone [Latuda] 20 mg Tablet
20 mg PO DAILY
valsartan 320 mg Tablet
320 mg PO DAILY
atorvastatin [Lipitor] 40 mg Tablet
40 mg PO QPM
neomycin-polymyxin B-dexameth [Maxitrol] 3.5mg/mL-10,000 unit/mL-0.1 % Drops,Suspension
1 drp BOTH EYES Q12H
Referrals:
[facility] [Outside]
Madison Noonan, DO [Active, Pulmonary Medicine]
UNKNOWN - PT DOES,NOT KNOW [Family Provider]
Activity Restrictions/Additional Instructions:
Follow-up with family practice clinic in the next several days for reevaluation of your symptoms.
In addition you are also referred to pulmonology
Interventions
Interventions:
*Risk Screen - Suicide Last Done: 04/09/25 09:45
*General Assessment Last Done: 04/09/25 09:45
*Neglect/Abuse Screening Last Done: 04/09/25 10:45
*ED- Fall Risk Assessment Last Done: 04/09/25 10:45
*ED COVID-19 Vaccine History Last Done: 04/09/25 10:45
*ED Influenza Vaccine History Last Done: 04/09/25 10:45
*Nursing Disposition Last Done: 04/09/25 14:32
ED- Cardiac Assessment Last Done: 04/09/25 10:47
ED- Pulmonary Assessment Last Done: 04/09/25 10:47
Discharge Date and Time
Discharge Date/Time: 04/09/25 14:32
Print Language: PANAMANIAN
[2025-04-09 10:58] VITALS: BMI 63.9
[2025-04-09 10:59] VITALS: BP 124/69
[2025-04-09 11:00] VITALS: BP 129/68
[2025-04-09] MEDS: VENTOLIN NEBULES 2.5 MG INH (11:46)
[2025-04-09] MEDS: LASIX 40 MG IV (11:53)
[2025-04-09 12:00] VITALS: BP 143/91
[2025-04-09 13:02] VITALS: BP 34/22
--- NOTE | 2025-04-09 13:13 | CON.PUL ---
Consultation
Consultation Request
Date/Time Consultation Requested: 04/09/25
Date/Time Consultation Performed: 04/09/25
Performing Provider: Shaista
Reason for Consultation: Hypoxemia
Medical History
-
History of Present Illness:
34-year-old male with previous history of asthma, morbid obesity, and MARTHA noncompliant with CPAP presenting to ER for shortness of breath. He was recently seen here earlier this morning and signed out AMA and returned again following outpatient
therapy class. He states that he has shortness of breath, associated lower extremity edema. He is currently 93% on room air, appears comfortable, in no acute distress. He has a history of signing out AMA and noncompliance. He said his last sleep
study was at [facility] in the past 1 to 2 years, he was not instructed to use oxygen with his CPAP device. He states that his CPAP device is currently sitting in his car. He is unable to use it because he is now homeless and living in his car.
When asked if he would like to be discharged home following treatment with prednisone course, he states he would 'want to stay because he has nowhere else to go.'
Past Medical History
Past Medical History: Other (see list below)
Social History
Tobacco: Non-smoker
Alcohol: None
Drug: None
Family History
Family History: Reviewed & Not Pertinent
Allergies / Home Medications
Allergies
Allergy/AdvReac Type Severity Reaction Status Date / Time
No Known Allergies Allergy Verified 04/09/25 09:45
Home Medications
�Medication �Instructions �Recorded �Confirmed �Last Taken �Type
albuterol sulfate 90 mcg/actuation 2 puff inhalation R Q6HPRN PRN SOB 01/15/25 04/08/25 Unknown History
aerosol inhaler
alprazolam 0.25 mg tablet (Xanax) 0.25 mg PO BIDPRN PRN ANIXETY 01/15/25 04/08/25 Unknown History
budesonide-formoterol HFA 80 2 inh inhalation R BID 07/04/08/25 01/14/25 History
mcg-4.5 mcg/actuation aerosol
inhaler (Symbicort)
fluoxetine 20 mg capsule 20 mg PO DAILY@1300 01/15/25 04/08/25 01/14/25 History
gabapentin 600 mg tablet 600 mg PO TID 01/15/25 04/08/25 Unknown History
metformin 500 mg tablet,extended 500 mg PO DAILY 01/15/25 04/08/25 01/14/25 History
release 24 hr
therapeutic multivitamin 1 tab PO DAILY 01/15/25 04/08/25 01/14/25 History
trazodone 50 mg tablet 50 mg PO HS 01/15/25 04/08/25 01/14/25 History
atorvastatin 40 mg tablet (Lipitor) 40 mg PO QPM 04/08/25 04/08/25 Unknown History
ciprofloxacin 0.3 %-dexamethasone 4 drp otic (ear) BID left ear 04/08/25 04/08/25 Unknown History
0.1 % ear drops,suspension
furosemide 40 mg tablet 40 mg PO BID 04/08/25 04/08/25 04/07/25 History
lurasidone 20 mg tablet (Latuda) 20 mg PO DAILY 04/08/25 04/08/25 Unknown History
rrafxwvm-eoynyulan-uyxvuchc 3.5 1 drp BOTH EYES Q12H 04/08/25 04/08/25 Unknown History
mg/mL-10,000 unit/mL-0.1% eye
drops (Maxitrol)
nifedipine 60 mg tablet,extended 60 mg PO DAILY 04/08/25 04/08/25 Unknown History
release 24 hr
sodium chloride 0.65 % nasal spray 1 spray intranasal Q6HPRN PRN 04/08/25 04/08/25 Unknown History
aerosol dryness
valsartan 320 mg tablet 320 mg PO DAILY 04/08/25 04/08/25 Unknown History
Review of Systems
-
History Source: Patient
All other systems: Negative unless noted
Vitals / Labs / Diagnostic Testing
Vital Signs
Temp Pulse Resp BP Pulse Ox
97.4 F 93 26 129/68 95
04/09/25 10:46 04/09/25 12:00 04/09/25 12:00 04/09/25 11:00 04/09/25 12:00
Diagnostic Testing:
Physical Exam
-
HEENT: Normocephalic, Anicteric and Moist Mucous Membranes
Cardiovascular: S1/S2, Regular Rhythm and Peripheral Edema (mild BL edema)
Respiratory: Clear and Non-Labored Respirations
GI: Soft, Non Distended and Non Tender
Neurology: Awake, Alert, Oriented and No Motor Deficits
Skin: Warm, Dry and Good Color
General: Comfortable and Other (NAD, morbidly obese)
Assessment
-
34-year-old male with previous history of asthma, morbid obesity, and MARTHA noncompliant with CPAP presenting to ER for shortness of breath. He was recently seen here earlier this morning and signed out AMA and returned again following outpatient
therapy class. He states that he has shortness of breath, associated lower extremity edema. He is currently 93% on room air, appears comfortable, in no acute distress. He has a history of signing out AMA and noncompliance. He said his last sleep
study was at [facility] in the past 1 to 2 years, he was not instructed to use oxygen with his CPAP device. He states that his CPAP device is currently sitting in his car. He is unable to use it because he is now homeless and living in his car.
When asked if he would like to be discharged home following treatment with prednisone course, he states he would 'want to stay because he has nowhere else to go.'
SOB, chronic
LE edema, chronic
Medical noncompliance
Living in car
Signed out AMA this AM
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
Chronic hypoxic respiratory failure, use of POC as needed at home
MARTHA not on CPAP
Diabetes Mellitus, Type II
Essential Hypertension
Hyperlipidemia
Anxiety
Depression
Mood Disorder
PTSD
Morbid obesity
Oral Surgery
Plan
No oxygen was needed on admission, currently saturating 93% on RA
He has a POC to use at home
Home O2 evaluation if needed
Prior history of lung disease is noted including asthma
He has been on symbicort in past-has difficulty affording his medications
We can switch his inhaler use to Advair generic to see if this is cheaper, we have discussed alternatives for inhalers as an outpatient if insurance does not cover
No prior PFTs available for review, we will try to attempt to locate records from [facility] as an outpatient--this was attempted on last admission but he signed out AMA
Patient has a history of MARTHA, no longer using CPAP
He likely has nocturnal hypoxemia associated with his MARTHA, but no prior sleep records to confirm
This requires outpatient sleep study/titration to assess properly
CXR/CT 04-08-25 obtained indicating no acute process
He is ruled out for PE
This was completed previously on 12/2024 and negative
He has history of hypertension but no other cardiomyopathy
proBNP on admission negative
Prior ECHO 01/15/25 negative
LE edema noted but this appears mostly unchanged from prior
OP Cards eval would be recommended for further eval
Can check duplex while in ER
Weight loss measures recommended
Obesity likely contributing to respiratory symptoms
We can discuss weight loss measures as an outpatient as well including initiation of Zepbound
He has not worked on weight loss measures
Will need outpatient pulmonary evaluation for PFTs and 6MWT--follows at [place]
When offered to follow up locally at on last eval, he did not follow up at our office
Based on his above presentation, he needs extensive outpatient w/u
He has a history of noncompliance and signing out AMA
He then states that he has no place to live and that is the actual reason he would like to stay--this would require CM involvement
I defer admission to primary team but from our standpoint, he can be seen as an OP
Diagnostic Data
Chest X-Ray: 2013-No acute process.
CT Scan: CHEST 01/15/25- 1. No evidence of pulmonary embolism or thoracic aortic dissection.
2. Clear lungs.
3. Severe diffuse fatty infiltration of the liver.
Echo: 01/13/25- Technically difficult study with fair image quality. Echo contrast used. Left ventricular ejection fraction is 60-65%. Wall motion analysis limited image quality. No significant valvular disease detected
PFT's:
Reports and relevant images were personally reviewed.
Total time spent on this consultation __55__ minutes which includes review of history, physical exam, medications, laboratory data, personal review of imaging, extensive review of outpatient records, discussion with care team and respiratory therapy.
--- NOTE | 2025-04-09 13:50 | EDRN ---
BP recorded from [employer] Monitor at 1322 reading 34/22 is erroneous and should not be considered a valid vital sign
--- NOTE | 2025-04-09 14:19 | CON.HOSP ---
Consultation
-
Date/Time Consultation Requested: 1407
Date/Time Consultation Performed: 1407
Requesting Provider: Taye Vogt
Performing Provider: Juan Carlos Arthur
Reason for Consultation: Discharge from ER
Family Physician
-
Family Physician: NOT KNOW UNKNOWN - PT DOES
Chief Complaint
-
SOB - chronic
History of Present Illness
34 male MARTHA noncompliant with CPAP, asthma, morbidly obese who presents for cough shortness of breath. Was admitted yesterday however left AMA this morning and returned again following outpatient therapy. Shortness of breath and lower extremity
edema ongoing. Has a cough that is productive which he states started earlier today and had no cough yesterday. Work up yesterday consisted of labs with microcytosis, wbc 11.1, trop negative, bnp 492, d-dimer 0.52, ctpe no evidence of pe, clear
lunges severe diffuse fatty infiltration of the liver.
Today, hemodynamically stable, 94-95% room air, sitting on the edge of his bed without evidence of respiratory distress. Lab with a wbc of 15. Pulmonary evaluated in the ED with diagnoses of chronic shortness of breath and lower extremity edema,
MARTHA noncompliant with CPAP. Change inhaler to Advair generic to see if this is cheaper, will need outpatient PFTs follow-up with outpatient pulmonary and 6-minute walk test. Needs to follow-up with outpatient sleep study and titration to assess
properly. Can check duplex while in the ER.
Should be noted he has a history of signing out AMA and noncompliance. Prior to presented to [facility] he was seen at [facility] in [place] for left upper extremity weakness and upper respiratory tract infections. He was
upset at that hospital because he was discharged from the ER and not admitted to the CT of the head was negative.
Should also be noted he states that he has no place to live and that is the actual reason he would like to stay
Medical History
Past Medical History
Past Medical History: Reports HTN, Hypercholesterolemia, NIDDM, Psychiatric and Other
Additional Past Medical History:
MARTHA
Social History
Tobacco: Non-smoker
Alcohol: None
Drug: None
Family History
Family History: Reviewed & Not Pertinent
Allergies / Home Medications
Allergies reflects when Allergies were last updated in [employer].
Home Medications with original date entered in [employer]
Allergy/Medication List:
Allergies
Allergy/AdvReac Type Severity Reaction Status Date / Time
No Known Allergies Allergy Verified 04/09/25 09:45
Home Medications
albuterol sulfate 90 mcg/actuation aerosol inhaler 2 puff inhalation R Q6HPRN PRN SOB 01/15/25
alprazolam 0.25 mg tablet (Xanax) 0.25 mg PO BIDPRN PRN ANIXETY 01/15/25
budesonide-formoterol HFA 80 mcg-4.5 mcg/actuation aerosol inhaler (Symbicort) 2 inh inhalation R BID 01/15/25
fluoxetine 20 mg capsule 20 mg PO DAILY@1300 01/15/25
gabapentin 600 mg tablet 600 mg PO TID 01/15/25
metformin 500 mg tablet,extended release 24 hr 500 mg PO DAILY 01/15/25
therapeutic multivitamin 1 tab PO DAILY 01/15/25
trazodone 50 mg tablet 50 mg PO HS 01/15/25
atorvastatin 40 mg tablet (Lipitor) 40 mg PO QPM 04/08/25
ciprofloxacin 0.3 %-dexamethasone 0.1 % ear drops,suspension 4 drp otic (ear) BID left ear 04/08/25
furosemide 40 mg tablet 40 mg PO BID 04/08/25
lurasidone 20 mg tablet (Latuda) 20 mg PO DAILY 04/08/25
ctedjkrn-bvmacygol-kbpebtfu 3.5 mg/mL-10,000 unit/mL-0.1% eye drops (Maxitrol) 1 drp BOTH EYES Q12H 04/08/25
nifedipine 60 mg tablet,extended release 24 hr 60 mg PO DAILY 04/08/25
sodium chloride 0.65 % nasal spray aerosol 1 spray intranasal Q6HPRN PRN dryness 04/08/25
valsartan 320 mg tablet 320 mg PO DAILY 04/08/25
Review of Systems
-
A 12 point Review of Systems was completed except as noted: Yes
Physical Exam
Vital Signs
Vital Signs
Temp Pulse Resp BP Pulse Ox
97.4 F 106 22 34/22 91
04/09/25 10:46 04/09/25 13:45 04/09/25 13:45 04/09/25 13:02 04/09/25 13:45
Physical Exam
General: Well Developed, Well Nourished, No Apparent Distress and Comfortable
HEENT: Normocephalic, Anicteric, Moist Mucous Membranes and Other (Short thick neck)
Respiratory: Clear; Negative Wheezes, Rales, Rhonchi, Non Labored Respirations or Accessory Resp Muscle Use
Cardiac: S1/S2 and Regular Rhythm
GI: Soft, Non Tender, Non Distended, Normal Bowel Sounds and Other (Morbidly obese)
Musculoskeletal: No Clubbing, No Cyanosis and Edema (mild b/l LE)
Skin: Warm and Dry
Neuro: Awake and AO x 3
Laboratory Results
-
04/08/25
Chest X-Ray:
No acute process.
04/08/25
CT Scan:
1. No evidence of pulmonary embolism or thoracic aortic dissection.
2. Clear lungs.
3. Severe diffuse fatty infiltration of the liver.
01/13/25
Echo:
Technically difficult study with fair image quality. Echo contrast used. Left ventricular ejection fraction is 60-65%. Wall motion analysis limited image quality. No significant valvular disease detected
Impression / Plan
-
URI
COVID flu negative
Now with productive cough
Rec to DC with azithromycin and Omnicef x5days
Asthma
Generic Advair
Should follow-up with outpatient pulmonary
Low voltage QRS
Likely related to body habitus
MARTHA noncompliant with CPAP
Will need outpatient sleep study and titration
Follow-up with outpatient sleep medicine
Lower extremity edema, BNP 492
2D echocardiogram with EF of 60-65%
Lasix in the ED
CT PE study without evidence of pulmonary edema
Check duplex in the ED - b/l
Outpatient cardiology evaluation
Fatty liver
Will need outpatient GI/hepatology follow-up
Homelessness
Case management for disposition if unable to place long-term care facility
Likely would benefit from senior living
Anxiety depression mood disorder PTSD
Continue Xanax, fluoxetine Latuda, trazodone
Continue outpatient psychotherapy with psychiatry
Hypertension
Continue antihypertensives
Morbid obesity
Bariatric surgery follow-up
Should follow-up or consider PCP for GLP 1 agonist
Dietary lifestyle modification
--- NOTE | 2025-04-09 14:29 | EDRN ---
Pt initially to be admitted. Hospitalist did not feel admission was warranted. Escalated to ED MD group and case management. Decision made to discharge patient. 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
PIV removed, pt refused dc instructions and refused to sign dc paperwork. Pt dressed and ambulated independently to out doors of ED.
--- NOTE | 2025-04-09 14:29 | CM ---
Patient's health insurance was verified with Admissions: primary is Sherine DUMONT; and Daniel Contreras [facility]
Patient drove himself to the hospital and being discharged
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
== END 2025-04-09 14:32 | disposition home or self-care (01) ==
LOC: EMR 09:36
PROVIDERS: CONSULT PHYSICIAN Internal Medicine; EMERGENCY PHYSICIAN Student in an Organized Health Care Education/Training Program
DX: R06.02 Shortness of breath (principal); J44.9 Chronic obstructive pulmonary disease, unspecified; E11.9 Type 2 diabetes mellitus without complications; I11.0 Hypertensive heart disease with heart failure; I50.9 Heart failure, unspecified; G47.33 Obstructive sleep apnea (adult) (pediatric); E78.00 Pure hypercholesterolemia, unspecified; Z59.02 Unsheltered homelessness; R22.43 Localized swelling, mass and lump, lower limb, bilateral; Z79.51 Long term (current) use of inhaled steroids; Z91.199 Patient's noncompliance with other medical treatment and regimen due to unspecified reason; E66.01 Morbid (severe) obesity due to excess calories; G20.A1 Parkinson's disease without dyskinesia, without mention of fluctuations; F41.8 Other specified anxiety disorders
CPT/HCPCS: 94640; 96374; 99284

== ENCOUNTER 2025-06-27 08:52 | Emergency (ER) | payer OTHER, SELFPAY ==
[2025-06-27 08:54] VITALS: BP 165/113
--- NOTE | 2025-06-27 09:33 | ED.GENMED ---
History of Present Illness
General
Chief Complaint: Musculo-Skeletal Complaint
Time Seen by Provider: 06/27/25 09:33
History of Present Illness
History of Present Illness:
FOCUSED PAST MEDICAL HISTORY
- CHF, asthma, MARTHA noncompliant with CPAP, morbid obesity diabetes, anxiety depression, PTSD
REVIEW OF OLD RECORDS
- I reviewed records, the patient had a CAT scan of the chest 04/08/2021 that showed no PE or dissection and clear lungs, EF from this past December was 60 to 65% with no significant valvular disease
Note:
CHIEF COMPLAINT(S)
Right foot pain.
HISTORY OF PRESENT ILLNESS
The patient is a 35-year-old male with a history of Parkinsons disease, diagnosed last year, presenting with pain in the right foot after falling out of bed. He resides in a residential living facility where currently he sleeps on a twin bed until a
full goel bed can be provided. He fell off the bed, hitting his right foot against a wooden bed frame in a manner that led to a specific angle of impact. The patient indicates the pain is located on the outer part of the foot. X-ray studies were
reviewed, albeit not yet by a radiologist. The attending physician noted abnormalities to the lateral bones of the foot, particularly at the base of the fifth metatarsal, where there appears to be a chip or fracture possibly acute. The patient
reported pain upon palpation of the area. A boot has been suggested for management, and weight-bearing is permitted as tolerated by the patient.
CHRONIC MEDICAL CONDITIONS SIGNIFICANTLY AFFECTING CARE
The patient has been diagnosed with Parkinsons disease, which may affect mobility and increase the risk of falls.
REVIEW OF SYSTEMS
- Musculoskeletal: Presents with right foot pain on the lateral aspect following trauma.
PHYSICAL EXAM
General: Alert, no acute distress. Markedly elevated BMI
Skin: Warm, dry.
Head: Normocephalic, atraumatic.
Neck: Supple, trachea midline.
Eye Ears, nose, mouth and throat: Oral mucosa moist.
Cardiovascular: Normal peripheral perfusion, No edema.
Respiratory: Respirations are non-labored.
Gastrointestinal: Abdomen nondistended
Back: Normal range of motion, Normal alignment.
Musculoskeletal: There is tenderness to the lateral aspect of the forefoot and midfoot of the right foot.
Neurological: Alert and oriented to person, place, time, and situation, No focal neurological deficit observed.
Psychiatric: Cooperative, appropriate mood & affect.
PROBLEM LIST
- Acute: Right foot injury with suspected fracture at the base of the fifth metatarsal.
- Chronic: Parkinsons disease.
PLAN
1. The patient is advised to wear a boot to support the foot and allow weight-bearing as tolerated.
2. Referral to orthopedics for further evaluation is recommended.
3. Prescription for pain management has been discussed; the patient may receive a short-term supply of narcotics if the pain is severe.
4. Follow up with primary care or return to the emergency department if symptoms worsen.
DIFFERENTIAL DIAGNOSIS
The Differential Diagnosis includes, in no particular order and is not limited to:
- Fifth metatarsal fracture
- Ligamentous injury
- Soft tissue contusion
- Fifth metatarsal stress fracture
- Fracture of other tarsal bones
- Gout
- Neuropathy-related pain
- Arthritis exacerbation
- Foreign body reaction
- Non-specific musculoskeletal pain related to Parkinsons disease management.
Disposition:
SUMMARY OF ENCOUNTER
The patient was seen in the emergency department for right foot pain following a fall from bed, hitting his foot against a wooden frame. X-ray studies showed potential abnormalities at the base of the fifth metatarsal, possibly indicating a chip or
fracture. Despite the x-ray showing a peculiar look suggesting the possibility of a pre-existing issue, the management plan includes wearing a protective boot regardless of the fractures age. Further evaluation by market risk specialist Dr. Marie
from [facility] is recommended.
DISPOSITION
Discharge
ASSESSMENT
Suspected fracture or chip at the base of the fifth metatarsal on the right foot.
PLAN
The patient is advised to wear a boot to support the foot, allowing weight-bearing as tolerated. A referral to orthopedics for further evaluation is made with Dr. Marie. The patient will require follow-up to confirm the diagnosis and monitor
healing.
PATIENT EDUCATION AND COUNSELING
Discussed the importance of using pain medication judiciously and only if necessary. Patient was advised on using the boot for foot support. Provided contact information for orthopedic follow-up.
FOLLOW-UP INSTRUCTIONS
Follow-up with Dr. Marie at [facility] for further evaluation and management.
MEDICATION RECONCILIATION
A prescription for pain management was sent to the patients pharmacy, ensuring availability if needed.
MEDICAL DECISION MAKING
- Number and Complexity of Problems Addressed: Chronic conditions affecting care include Parkinsons disease. Differential diagnosis includes fifth metatarsal fracture, ligamentous injury, soft tissue contusion, fifth metatarsal stress fracture,
fracture of other tarsal bones, gout, neuropathy-related pain, arthritis exacerbation, foreign body reaction, non-specific musculoskeletal pain related to Parkinsons disease management.
- Data:
Category 1: X-ray tests reviewed for evaluation of the fifth metatarsal injury.
Category 3: Management of the patients care and referral to an market risk specialist was discussed with the patient.
- Risk: Prescription pain management was considered, but the patient was advised to limit use unless necessary. Social determinants affecting health include reliance on facility staff for transportation.
DIAGNOSIS
Fracture of base of fifth metatarsal, right foot (ICD-10: S92.351A).
RADIOLOGY
- I personally reviewed x-rays, there is bony deformity noted at the base of the fifth metatarsal and the cuboid
UPDATE
- Abnormal imaging consistent with fracture
- Sent prescription for narcotic to his pharmacy
- To follow-up with Ortho as well
Past History
Past History
ED Past Medical History: COPD, NIDDM and Psychiatric (anxiety)
ED Past Surgical History: Other (Oral surgery)
Social History
Tobacco: Non-smoker
Alcohol: Occasional
Drug: None
Personal: Single
Living: alone
Employment: Disabled
Family History
Family History: Adopted
Phy Exam
Physical Exam
Physical Exam:
See HPI
Course
Orders/Labs/Results
Orders:
Orders
06/27/25 09:22
CR Ankle - Right Min 3 Views * Urgent
Comment:
Reason For Exam: Injury
CR Foot - Right Min 3 Views Urgent
Comment:
Reason For Exam: Injury
06/27/25 09:49
boot [Ortho Boot Right- Treatment] ONCE
Short or tall?: Short
Vital Signs
Initial and Last Documented VS:
Initial Vital Signs
Temp Pulse Resp BP Pulse Ox
37.0 C 106 22 165/113 93
06/27/25 08:54 06/27/25 08:54 06/27/25 08:54 06/27/25 08:54 06/27/25 08:54
Last Documented Vital Signs
Temp Pulse Resp BP Pulse Ox
37.0 C 106 22 165/113 93
06/27/25 08:54 06/27/25 08:54 06/27/25 08:54 06/27/25 08:54 06/27/25 09:34
*Pulse Oximetry
SaO2: 93
Oxygen Mode of Delivery: Room air
Patient hypoxic: no
*Critical Care Note
Total Time (30-74mins, 75-104mins- exclusive of procedures): Not Applicable
ED Attending Note
-
Portions of this chart may have been created with voice recognition software.� Occasional wrong word or��sound alike� substitutions may have occurred due to the inherent limitations of voice recognition software.
Discharge Plan
Departure
Patient Disposition: Home (Routine Discharge)
Date of Disposition: 06/27/25
Time of Disposition: 10:54
Patient with high blood pressure during this ER visit?: Yes
Discharge Problem:
Foot fracture, right
Instructions: Foot Fracture ED, BLOOD PRESSURE
Prescriptions:
New
oxycodone-acetaminophen [Percocet] 5-325 mg tablet
1 - 2 tab PO Q6HPRN PRN (Reason: pain) Qty: 14 0RF
No Action
trazodone 50 mg tablet
50 mg PO HS
gabapentin 600 mg Tablet
600 mg PO TID
therapeutic multivitamin Tablet
1 tab PO DAILY
alprazolam [Xanax] 0.25 mg Tablet
0.25 mg PO BIDPRN PRN (Reason: ANIXETY)
albuterol sulfate 90 mcg/actuation Hfa Aerosol Inhaler
2 puff INHALATION R Q6HPRN PRN (Reason: SOB)
fluoxetine 20 mg Capsule
20 mg PO DAILY@1300
metformin 500 mg tablet extended release 24 hr
500 mg PO DAILY
budesonide-formoterol [Symbicort] 80-4.5 mcg/actuation Hfa Aerosol Inhaler
2 inh INHALATION R BID
furosemide 40 mg Tablet
40 mg PO BID
nifedipine 60 mg Tablet Extended Release 24hr
60 mg PO DAILY
sodium chloride 0.65 % Aerosol,[place]
1 spray INTRANASAL Q6HPRN PRN (Reason: dryness)
ciprofloxacin-dexamethasone 0.3-0.1 % Drops,Suspension
4 drp OTIC (EAR) BID
lurasidone [Latuda] 20 mg Tablet
20 mg PO DAILY
valsartan 320 mg Tablet
320 mg PO DAILY
atorvastatin [Lipitor] 40 mg Tablet
40 mg PO QPM
neomycin-polymyxin B-dexameth [Maxitrol] 3.5mg/mL-10,000 unit/mL-0.1 % Drops,Suspension
1 drp BOTH EYES Q12H
Referrals:
Shelby Jose MD [Family Provider, Family Practice]
Vijay Marie MD [Active, Orthopedics]
Activity Restrictions/Additional Instructions:
There appears to be fractures at the base of the fifth metatarsal and cuboid bones. I recommend that you follow-up with an orthopedist such as Dr. Marie. I did send a prescription for narcotic to your pharmacy. Return if worse or other
concerns. If you take the narcotic, I recommend something like MiraLAX to help event constipation.
Interventions
Interventions:
*General Assessment Last Done: 06/27/25 08:54
*Neglect/Abuse Screening Last Done: 06/27/25 08:54
*Risk Screen - Suicide (C-SSRS) Last Done: 06/27/25 08:54
ED-Musculoskeletal Assessment Last Done: 06/27/25 09:20
Discharge Date and Time
Print Language: UPPER SORBIAN
== END 2025-06-27 11:17 | disposition home or self-care (01) ==
LOC: EMR 08:52
PROVIDERS: EMERGENCY PHYSICIAN Emergency Medicine; FAMILY PHYSICIAN Family Medicine
DX: S92.351A Displaced fracture of fifth metatarsal bone, right foot, initial encounter for closed fracture (principal); W06.XXXA Fall from bed, initial encounter; R03.0 Elevated blood-pressure reading, without diagnosis of hypertension; I50.9 Heart failure, unspecified; J45.909 Unspecified asthma, uncomplicated; G47.33 Obstructive sleep apnea (adult) (pediatric); Z91.199 Patient's noncompliance with other medical treatment and regimen due to unspecified reason; E66.01 Morbid (severe) obesity due to excess calories; E11.9 Type 2 diabetes mellitus without complications; F43.10 Post-traumatic stress disorder, unspecified; F41.9 Anxiety disorder, unspecified; F32.A Depression, unspecified; G20.A1 Parkinson's disease without dyskinesia, without mention of fluctuations; J44.9 Chronic obstructive pulmonary disease, unspecified
CPT/HCPCS: 99283; 29515; 73610; 73630